=== PATIENT | male | born 1975 | race Two or more races ===

== ENCOUNTER 2018-04-30 17:39 | Inpatient (IN) | payer BC ==
[2018-04-30 18:47] VITALS: BMI 22.5
--- NOTE | 2018-04-30 21:00 | HP ---
CIWA Score Nausea/Vomitin Muscle Tremors: 1-None Visible, but Douglas Anxiety: 2 Agitation: 2 Paroxysmal Sweats: 1-Minimal Palms Moist Orientation: 0-Oriented Tacttile Disturbances: 2-Mild Itch/Numbness/Burn Auditory Disturbances: 1-Very Mild Visual Disturbances: 0-None Headache: 2-Mild CIWA-Ar Total Score: 14 - Admission Criteria OASAS Guidelines: Admission for Medically Managed Detox: Requires at least one of the followin. CIWA greater than 12 2. Seizures within the past 24 hours 3. Delirium tremens within the past 24 hours 4. Hallucinations within the past 24 hours 5. Acute intervention needed for co occurring medical disorder 6. Acute intervention needed for co occurring psychiatric disorder 7. Severe withdrawal that cannot be handled at a lower level of care (continued vomiting, continued diarrhea, abnormal vital signs) requiring intravenous medication and/or fluids 8. Patient presents the following: CIWA greater than 12 Admission Criteria Met: Admission criteria met Admission ROS [facility] Chief Complaint: "I want to detox from alcohol" Allergies/Adverse Reactions: Allergies Allergy/AdvReac Type Severity Reaction Status Date / Time Fish Containing Products Allergy Severe Hives Verified 01/03/12 15:32 shellfish derived Allergy Unknown SEAFOOD Verified 01/04/12 09:46 ALLERGY SEAFOOD Allergy Unknown SEAFOOD Uncoded 01/04/12 09:31 History of Present Illness: 43 yo male with hx of nicotine, alcohol, cocaine (IV), heroin (IV) dependence is here seeking alcohol detox. Patient is link to [facility] at [facility] on 60 mg, last medicated today. PHMX: Hep C, HTN , depression. Denies suicidal / homicidal ideation. Denies hx of seizures. Reports hx of overdose x 2, last episode 2013. Last detox [facility] 2011. Denies any legal troubles at this time. Exam Limitations: No Limitations - Ebola screening Have you traveled outside of the country in the last 21 days: No (N) Have you had contact with anyone from an Ebola affected area: No Have you been sick,other than usual withdrawal symptoms: No Do you have a fever: No - Review of Systems Constitutional: Changes in sleep, Weakness, Unintentional Wgt. Loss (30 lbs in past six months), Other Respiratory: reports: No Symptoms reported Cardiac: reports: No Symptoms Reported GI: reports: Nausea, Poor Appetite, Poor Fluid Intake : reports: No Symptoms Reported Musculoskeletal: reports: Other (chronic left knee pain) Integumentary: reports: No Symptoms Reported Neuro: reports: Headache, Weakness Endocrine: reports: Increased Thirst Hematology: reports: Anemia Psychiatric: reports: Orientated x3, Anxious Other Systems: Reviewed and Negative Patient History - Patient Medical History Hx Anemia: Yes Hx Asthma: No Hx Chronic Obstructive Pulmonary Disease (COPD): No Hx Cancer: No Hx Cardiac Disorders: No Hx Congestive Heart Failure: No Hx Hypertension: Yes (hctz and losartan ) Hx Hypercholesterolemia: No Hx Pacemaker: No HX Cerebrovascular Accident: No Hx Seizures: No Hx Dementia: No Hx Diabetes: No Hx Gastrointestinal Disorders: No Hx Liver Disease: No Hx Genitourinary Disorders: No Hx Sexually Transmitted Disorders: No Hx Renal Disease (ESRD): No Hx Thyroid Disease: No Hx Human Immunodeficiency Virus (HIV): No (Last tested Feb 2018 Neg results ) Hx Hepatitis C: Yes Hx Depression: No Hx Suicide Attempt: No Hx Bipolar Disorder: No Hx Schizophrenia: No - Patient Surgical History Past Surgical History: Yes Hx Neurologic Surgery: No Hx Cataract Extraction: No Hx Cardiac Surgery: No Hx Lung Surgery: No Hx Breast Surgery: No Hx Breast Biopsy: No Hx Abdominal Surgery: No Hx Appendectomy: No Hx Cholecystectomy: No Hx Genitourinary Surgery: No Hx Section: No Hx Orthopedic Surgery: Yes (leftg knee sx 2007) Anesthesia Reaction: No - PPD History Previous Implant?: No Documented Results: Negative w/o proof Date: 01/06/12 PPD to be Administered?: Yes - Smoking Cessation Smoking history: Current every day smoker Have you smoked in the past 12 months: No Aproximately how many cigarettes per day: 2 Hx Chewing Tobacco Use: No Initiated information on smoking cessation: Yes 'Breaking Loose' booklet given: 04/30/18 - Substance & Tx. History Hx Alcohol Use: Yes Hx Substance Use: Yes Substance Use Type: Alcohol, Cocaine, Heroin, Opiates Hx Substance Use Treatment: Yes ([facility] 2011) - Substances Abused Alcohol Route: Oral Frequency: Daily Amount used: 1 pint Age of first use: 19 Date of Last Use: 04/30/18 Cocaine Route: Injection Frequency: Daily Amount used: 10 bags Age of first use: 19 Date of Last Use: 04/30/18 Heroin Route: Injection Frequency: Daily Amount used: 10 bags Age of first use: 21 Date of Last Use: 04/30/18 Family Disease History - Family Disease History Family Disease History: Diabetes: Grandparent () Admission Physical Exam [facility] - Vital Signs Vital Signs: Vital Signs - 24 hr 04/30/18 18:46 Temperature 98.7 F Pulse Rate 75 Respiratory 18 Rate Blood Pressure 150/98 - Physical General Appearance: Yes: Mild Distress, Thin, Sweating, Anxious HEENTM: Yes: EOMI, Hearing grossly Normal, Normal ENT Inspection, Normocephalic , Normal Voice, HILLARY, Pharynx Normal, Tm's normal, Other (dry mucous memebranes) Respiratory: Yes: Chest Non-Tender, Lungs Clear, Normal Breath Sounds, No Respiratory Distress, No Accessory Muscle Use Neck: Yes: Within Normal Limits Breast: Yes: Breast Exam Deferred Cardiology: Yes: Regular Rhythm, Regular Rate Abdominal: Yes: Normal Bowel Sounds, Non Tender, Flat, Soft Genitourinary: Yes: Within Normal Limits Back: Yes: Normal Inspection Musculoskeletal: Yes: full range of Motion, Gait Steady, Pelvis Stable, Other ( knee pain) Extremities: Yes: Within Normal Limits Neurological: Yes: buying agent II-XII NML intact, Fully Oriented, Alert, Motor Strength 5/5, Depressed Affect Integumentary: Yes: Normal Color, Dry, Warm, Track Blake (bilateral anitcubital fossa, no infection present) Lymphatic: Yes: Within Normal Limits - Diagnostic (1) Alcohol dependence with withdrawal Current Visit: Yes Status: Acute Qualifiers: Complication of substance-induced condition: uncomplicated Qualified Code(s ): F10.230 - Alcohol dependence with withdrawal, uncomplicated (2) Opioid dependence on agonist therapy Current Visit: Yes Status: Chronic Comment: methadone 60 mg qd, dose pending verification (3) IVDU (intravenous drug user) Current Visit: Yes Status: Acute (4) Hypertension Current Visit: Yes Status: Chronic Qualifiers: Hypertension type: essential hypertension Qualified Code(s): I10 - Essential (primary) hypertension (5) Hepatitis C Current Visit: Yes Status: Chronic Qualifiers: Viral hepatitis chronicity: chronic Hepatic coma status: without hepatic coma Qualified Code(s): B18.2 - Chronic viral hepatitis C (6) Cocaine dependence Current Visit: Yes Status: Active Cleared for Admission [facility] - Detox or Rehab [facility] Level of Care: Medically Managed Detox Regimen/Protocol: Valium [facility] Breath Alcohol Content Breath Alcohol Content: 0 Urine Drug Screen - Results Drug Screen Negative: No Urine Drug Screen Results: THC-Marijuana, MERVIN-Cocaine, OPI-Opiates, MTD- Methadone
[2018-04-30] MEDS ORDERED: MAGNESIUM HYDROX 2400MG/30ML ORAL SUSPENSION 30 ML CUP PO PRN (21:09)
[2018-04-30] MEDS ORDERED: hydrOXYzine PAMOATE 50 MG CAPSULE (FP) PO PRN (21:09)
[2018-04-30] MEDS ORDERED: MAG HYDROX/AL HYDROX/SIMETH 30 ML UNIT-DOSE CUP PO PRN (21:09)
[2018-04-30] MEDS ORDERED: LOPERAMIDE HCL 2 MG CAPSULE PO PRN (21:09)
[2018-04-30] MEDS ORDERED: P-EPHED 60MG/TRIPROLIDI 2.5MG TABLET PO PRN (21:09)
[2018-04-30] MEDS ORDERED: guaiFENesin/D-METHORPHAN HB 10 ML UNIT-DOSE CUPS PO PRN (21:09)
[2018-04-30] MEDS ORDERED: MENTHOL/PHENOL 1 EACH UD MM PRN (21:09)
[2018-04-30] MEDS ORDERED: IBUPROFEN 400 MG TABLET (FP) PO PRN (21:09)
[2018-04-30] MEDS ORDERED: ACETAMINOPHEN 325 MG TABLET (FP) PO PRN (21:09)
[2018-04-30] MEDS ORDERED: diazePAM 5 MG TABLET PO PRN (21:09)
[2018-04-30] MEDS ORDERED: NICOTINE POLACRILEX 2 MG GUM BC PRN (21:09)
[2018-04-30] MEDS ORDERED: MAGNESIUM CITRATE 300 ML BOTTLE PO PRN (21:09)
[2018-04-30] MEDS ORDERED: MELATONIN 5 MG TABLETS PO PRN (22:00)
[2018-04-30] MEDS ORDERED: diazePAM 5 MG TABLET PO ONE (22:00)
[2018-04-30] MEDS: THIAMINE HCL 100 MG TABLET (FP) PO SCH (23:37)
[2018-04-30] MEDS: diazePAM 5 MG TABLET PO SCH (23:39)
[2018-05-01] MEDS: diazePAM 5 MG TABLET PO SCH ×3 (06:28→22:21)
[2018-05-01] MEDS ORDERED: METHADONE HCL 10 MG TABLET PO ONE (09:22)
[2018-05-01] MEDS ORDERED: METHADONE 40 MG, METHADONE 20 MG PO ONE (09:50)
[2018-05-01 10:00] LABS: HEMATOCRIT 34.6 % (35.4-49); HEMOGLOBIN 12.1 GM/dL (11.7-16.9); MCH 32.2 pg (25.7-33.7); MCHC 34.9 g/dl (32.0-35.9); MEAN CELL VOLUME 92.3 fl (80-96); MEAN PLT VOLUME 8.6 fl (7.5-11.1); PLATELET COUNT 112 K/MM3 (134-434); RBC 3.75 M/mm3 (4.00-5.60); RDW 14.1 % (11.9-15.9); WHITE BLOOD COUNT 4.2 K/mm3 (4.0-10.0)
--- NOTE | 2018-05-01 10:49 | PN ---
S CIWA - CIWA Score Nausea/Vomitin-No Nausea/No Vomiting Muscle Tremors: 3 Anxiety: 3 Agitation: 3 Paroxysmal Sweats: 3 Orientation: 0-Oriented Tacttile Disturbances: 0-None Auditory Disturbances: 0-None Visual Disturbances: 0-None Headache: 0-None Present CIWA-Ar Total Score: 12 S Progress Note (SOAP) Subjective: diarrhea sweats anxiety interrupted sleep Objective: 05/01/18 10:48 Vital Signs Temperature 98.2 F 05/01/18 09:34 Pulse Rate 77 05/01/18 09:34 Respiratory Rate 18 05/01/18 09:34 Blood Pressure 132/73 05/01/18 09:34 O2 Sat by Pulse Oximetry (%) Laboratory Tests 05/01/18 07:00 WBC 4.2 RBC 3.75 L Hgb 12.1 Hct 34.6 L MCV 92.3 MCH 32.2 MCHC 34.9 RDW 14.1 Plt Count 112 L MPV 8.6 rest of labs pending aaox3 ambulating no acute distress Assessment: 05/01/18 10:49 withdrawal sx Plan: continue detox increase fluids immodium prn
[2018-05-01] MEDS: PRENATAL VITAMINS W/ FOLIC ACID TABLET (FP) PO SCH (10:50)
[2018-05-01] MEDS: NICOTINE 14 MG/24 HOURS TOPICAL PATCH TD SCH (10:50)
[2018-05-01] MEDS ORDERED: METHADONE HCL 40 MG DISPERSABLE TABLET ONE (10:51)
[2018-05-01] MEDS ORDERED: METHADONE HCL 10 MG TABLET ONE (10:52)
[2018-05-01 11:13] LABS: ALBUMIN 3.2 g/dl (3.4-5.0); ALK PHOS 99 U/L (45-117); ANION GAP 9 MMOL/L (8-16); BILIRUBIN,TOTAL 0.6 mg/dL (0.2-1); BLOOD UREA NITROGEN 13 mg/dL (7-18); CALCIUM 8.4 mg/dL (8.5-10.1); CHLORIDE 101 mmol/L (98-107); CO2 25 mmol/L (21-32); CREATININE 0.8 mg/dL (0.55-1.3); GLUCOSE,RANDOM 178 mg/dL (74-106); POTASSIUM 3.5 mmol/L (3.5-5.1); SGOT/AST 99 U/L (15-37); SGPT/ALT 140 U/L (13-61); SODIUM 135 mmol/L (136-145); TOT PROT 7.5 g/dl (6.4-8.2)
--- NOTE | 2018-05-01 11:42 | EKG ---
Test Reason : Blood Pressure : / mmHG Vent. Rate : 057 BPM Atrial Rate : 057 BPM P-R Int : 128 ms QRS Dur : 090 ms QT Int : 426 ms P-R-T Axes : 069 080 054 degrees QTc Int : 414 ms SINUS BRADYCARDIA NONSPECIFIC T WAVE ABNORMALITY ABNORMAL ECG NO PREVIOUS ECGS AVAILABLE Confirmed by ISREAL CHILDERS, MIGUELANGEL ([id number]) on 05/01/2018 11:41:39 AM Referred By: Confirmed By:MIGUELANGEL BACH MD
[2018-05-01] MEDS: THIAMINE HCL 100 MG TABLET (FP) PO SCH (22:20)
[2018-05-02] MEDS ORDERED: METHADONE HCL 40 MG DISPERSABLE TABLET ONE (04:58)
[2018-05-02] MEDS ORDERED: METHADONE HCL 10 MG TABLET ONE (04:59)
[2018-05-02] MEDS: METHADONE 40 MG, METHADONE 20 MG PO SCH (05:53)
[2018-05-02] MEDS ORDERED: METHADONE HCL 40 MG DISPERSABLE TABLET PO SCH (06:00)
[2018-05-02] MEDS: diazePAM 5 MG TABLET PO SCH ×2 (10:12→22:07)
[2018-05-02] MEDS: PRENATAL VITAMINS W/ FOLIC ACID TABLET (FP) PO SCH (10:12)
[2018-05-02] MEDS: NICOTINE 14 MG/24 HOURS TOPICAL PATCH TD SCH (10:13)
--- NOTE | 2018-05-02 16:03 | PN ---
[facility] CIWA - CIWA Score Nausea/Vomitin-No Nausea/No Vomiting Muscle Tremors: 2 Anxiety: 3 Agitation: 0-Normal Activity Paroxysmal Sweats: 3 Orientation: 0-Oriented Tacttile Disturbances: 2-Mild Itch/Numbness/Burn Auditory Disturbances: 0-None Visual Disturbances: 3-Moderate Sensitivity Headache: 0-None Present CIWA-Ar Total Score: 13 S Progress Note (SOAP) Subjective: Diarrhea, Stomach Cramping, Chills, Sensitivity To Light. Objective: PATIENT A & O X 3, OBSERVED AMBULATING ON UNIT. IN NO ACUTE DISTRESS. 05/02/18 15:58 Vital Signs Temperature 98.1 F 05/02/18 13:56 Pulse Rate 82 05/02/18 13:56 Respiratory Rate 18 05/02/18 13:56 Blood Pressure 127/69 05/02/18 13:56 O2 Sat by Pulse Oximetry (%) Laboratory Tests 05/01/18 05/01/18 05/01/18 07:00 07:00 07:00 WBC 4.2 RBC 3.75 L Hgb 12.1 Hct 34.6 L MCV 92.3 MCH 32.2 MCHC 34.9 RDW 14.1 Plt Count 112 L MPV 8.6 Sodium 135 L Potassium 3.5 Chloride 101 Carbon Dioxide 25 Anion Gap 9 BUN 13 Creatinine 0.8 Creat Clearance w eGFR > 60 Random Glucose 178 H Calcium 8.4 L Total Bilirubin 0.6 AST 99 H ALT 140 H Alkaline Phosphatase 99 Total Protein 7.5 Albumin 3.2 L RPR Titer Nonreactive HIV 1&2 Antibody Screen HIV P24 Antigen 05/01/18 07:00 WBC RBC Hgb Hct MCV MCH MCHC RDW Plt Count MPV Sodium Potassium Chloride Carbon Dioxide Anion Gap BUN Creatinine Creat Clearance w eGFR Random Glucose Calcium Total Bilirubin AST ALT Alkaline Phosphatase Total Protein Albumin RPR Titer HIV 1&2 Antibody Screen Negative HIV P24 Antigen Negative LABS NOTED. Assessment: 05/02/18 15:59 WITHDRAWAL SYMPTOMS. ELEVATED LIVER ENZYMES. ANEMIA. THROMBOCYTOPENIA. 05/02/18 16:01 Plan: CONTINUE DETOX. BGM ACBK FOR ELEVATED ADMISSION RANDOM GLUCOSE LEVEL. REPEAT AST, ALT TOMORROW FOR ELEVATED ADMISSION LEVELS.
[2018-05-02] MEDS: THIAMINE HCL 100 MG TABLET (FP) PO SCH (22:07)
[2018-05-03] MEDS ORDERED: METHADONE HCL 10 MG TABLET ONE (05:07)
[2018-05-03] MEDS ORDERED: METHADONE HCL 40 MG DISPERSABLE TABLET ONE (05:07)
[2018-05-03] MEDS: METHADONE 40 MG, METHADONE 20 MG PO SCH (05:54)
[2018-05-03] MEDS: NICOTINE 14 MG/24 HOURS TOPICAL PATCH TD SCH (10:13)
[2018-05-03] MEDS: PRENATAL VITAMINS W/ FOLIC ACID TABLET (FP) PO SCH (10:13)
[2018-05-03] MEDS: diazePAM 5 MG TABLET PO SCH ×2 (10:13→22:06)
[2018-05-03 10:54] LABS: SGOT/AST 121 U/L (15-37); SGPT/ALT 145 U/L (13-61)
--- NOTE | 2018-05-03 13:15 | PN ---
[facility] Progress Note (SOAP) Subjective: anxiety feeling so much better Objective: 05/03/18 13:14 Vital Signs Temperature 98.2 F 05/03/18 09:17 Pulse Rate 84 05/03/18 09:17 Respiratory Rate 18 05/03/18 09:17 Blood Pressure 114/73 05/03/18 09:17 O2 Sat by Pulse Oximetry (%) aaox3 ambulating no acute distress pt states he is not a diabetic. will d/c BGM order Assessment: 05/03/18 13:15 mild withdrawal sx Plan: continue detox increase fluids d/c in am
[2018-05-03] MEDS: THIAMINE HCL 100 MG TABLET (FP) PO SCH (22:06)
[2018-05-04] MEDS ORDERED: METHADONE HCL 10 MG TABLET ONE (05:47)
[2018-05-04] MEDS ORDERED: METHADONE HCL 40 MG DISPERSABLE TABLET ONE (05:47)
[2018-05-04] MEDS: METHADONE 40 MG, METHADONE 20 MG PO SCH (05:48)
[2018-05-04] MEDS ORDERED: diazePAM 5 MG TABLET PO SCH (10:00)
[2018-05-04 10:25] VITALS: BP 121/67; PULSE 72; TEMP 97.2
[2018-05-04] MEDS: PRENATAL VITAMINS W/ FOLIC ACID TABLET (FP) PO SCH (10:42)
[2018-05-04] MEDS: NICOTINE 14 MG/24 HOURS TOPICAL PATCH TD SCH (10:44)
--- NOTE | 2018-05-04 13:22 | PN ---
S Progress Note (SOAP) Subjective: No new complaints Objective: 05/04/18 13:18 A & O x 3 Ambulating steadily on unit Vital Signs Temperature 97.2 F L 05/04/18 10:25 Pulse Rate 72 05/04/18 10:25 Respiratory Rate 16 05/04/18 10:25 Blood Pressure 121/67 05/04/18 10:25 O2 Sat by Pulse Oximetry (%) Assessment: 05/04/18 13:19 detox completed Plan: for discharge
--- NOTE | 2018-05-04 13:26 | DS ---
[facility] Detox Discharge Summary Admission Date: 04/30/18 Discharge Date: 05/04/18 - History Additional Comments: Pt completed detox Will continue aftercare by attending Rehab at [facility] Not on any home med Pertinent Past History: Hep C - Physical Exam Results Vital Signs: Vital Signs Temperature 97.2 F L 05/04/18 10:25 Pulse Rate 72 05/04/18 10:25 Respiratory Rate 16 05/04/18 10:25 Blood Pressure 121/67 05/04/18 10:25 O2 Sat by Pulse Oximetry (%) Pertinent Admission Physical Exam Findings: withdrawal sx - Treatment Hospital Course: Detox Protocol Followed, Detoxed Safely, Responded well, Discharged Condition Good, Rehab Referral Accepted Patient has Accepted a Rehab Referral to: [facility] - Medication Discharge Medications: Ambulatory Orders clonazePAM [Klonopin -] 2 mg PO BID 04/30/18 - AMA Did Patient Leave Against Medical Advice: No
== END 2018-05-04 11:18 | disposition home or self-care (01) | DRG 773 ==
LOC: YASAS 17:39 → Y6N 21:37
PROVIDERS: ADMIT Surgery; ATTEND Surgery
PROC: HZ2ZZZZ Detoxification Services for Substance Abuse Treatment (ICD-10-PCS; principal; 2018-04-30)
DX: F10.230 Alcohol dependence with withdrawal, uncomplicated (principal); F14.20 Cocaine dependence, uncomplicated; F11.20 Opioid dependence, uncomplicated; I10 Essential (primary) hypertension; B18.2 Chronic viral hepatitis C; Z91.013 Allergy to seafood
CPT/HCPCS: 36415; 80053; 82947; 82962; 84450; 84460; 85027; 86593; 87389; 93005; 93010

== ENCOUNTER 2018-07-02 19:23 | Inpatient (IN) | payer OTHER ==
[2018-07-02 20:50] VITALS: BMI 21.9
--- NOTE | 2018-07-02 21:37 | HP ---
CIWA Score Nausea/Vomitin-Mild Nausea/No Vomiting Muscle Tremors: 4-Moderate,w/Arms Extend Anxiety: 1-Mildly Anxious Agitation: 1-Slight > Activity Paroxysmal Sweats: 3 (Increased facial moisture) Orientation: 0-Oriented Tacttile Disturbances: 0-None Auditory Disturbances: 0-None Visual Disturbances: 0-None Headache: 2-Mild CIWA-Ar Total Score: 12 - Admission Criteria OASAS Guidelines: Admission for Medically Managed Detox: Requires at least one of the followin. CIWA greater than 12 2. Seizures within the past 24 hours 3. Delirium tremens within the past 24 hours 4. Hallucinations within the past 24 hours 5. Acute intervention needed for co occurring medical disorder 6. Acute intervention needed for co occurring psychiatric disorder 7. Severe withdrawal that cannot be handled at a lower level of care (continued vomiting, continued diarrhea, abnormal vital signs) requiring intravenous medication and/or fluids 8. Patient presents the following: CIWA greater than 12 Admission Criteria Met: Admission criteria met Admission ROS [facility] Chief Complaint: States having alcohol withdrawal. Allergies/Adverse Reactions: Allergies Allergy/AdvReac Type Severity Reaction Status Date / Time Fish Containing Products Allergy Severe Hives Verified 07/02/18 20:34 shellfish derived Allergy Unknown SEAFOOD Verified 07/02/18 20:34 ALLERGY SEAFOOD Allergy Unknown SEAFOOD Uncoded 07/02/18 20:34 History of Present Illness: States here for detox from alcohol and prescribed benzos' Heroin use began at age 21. Relapsing w/ heroin IV. Has shared needles in recent past. On [facility] in [place], [place] x 2-3 years. States current Methadone dose is 70 mg. Needs dose verification. Benzo use began at age 25. Didn't start using a lot until 2 years ago. Is being prescribed. Alcohol use began at age 18. Began drinking a lot at age 39. Nicotine use began at age 18. Longest length of sobriety 2-3 years ago. No hx seizures. Hx overdose - last 2013. Has a Narcan Kit at home. PHMX: HTN , Hep C - not treated; nose bleeds; gout 04/30/18 EKG = Sinus bradycardia w/ non-specific T-wave abnormality. MHHx: Depression. Denies thoughts of harming self or others Patient Name: Refugio Douglas Date: 1975 Address: [id number] [address] Sex: Male Rx Written Rx Dispensed Drug Quantity Days Supply Prescriber Name 06/24/2018 07/01/2018 hydrocodone-acetaminophen 10-325 mg tablet 14 7 Fish, Art Boothe DO 06/24/2018 06/24/2018 clonazepam 2 mg tablet 60 30 Fish, Art Boothe DO 06/03/2018 06/17/2018 hydrocodone-acetaminophen 10-325 mg tablet 30 15 Fish, Art Boothe DO 06/01/2018 06/03/2018 alprazolam 1 mg tablet 10 5 Fish, Art Boothe DO 06/03/2018 06/03/2018 alprazolam 1 mg tablet 10 5 Fish, Art Boothe DO 05/24/2018 05/27/2018 clonazepam 2 mg tablet 50 25 Fish, Art Boothe DO 04/22/2018 05/23/2018 hydrocodone-acetaminophen 10-325 mg tablet 60 30 Fish, Art oBothe DO 05/23/2018 05/23/2018 clonazepam 2 mg tablet 10 5 Fish, Art Boothe DO 04/22/2018 04/22/2018 clonazepam 2 mg tablet 60 30 Fish, Art Boothe DO 03/27/2018 04/17/2018 clonazepam 2 mg tablet 60 30 Fish, Art Boothe DO 03/17/2018 03/20/2018 alprazolam 1 mg tablet 20 10 Fish, Art Boothe DO 03/11/2018 03/11/2018 hydrocodone-acetaminophen 10-325 mg tablet 90 30 Fish, Art Boothe DO 03/05/2018 03/06/2018 alprazolam 1 mg tablet 30 15 Fish, Art Boothe DO Patient Name: Refugio Douglas Date: 1975 Address: [id number] [place] [address] Sex: Male Rx Written Rx Dispensed Drug Quantity Days Supply Prescriber Name 02/26/2018 02/26/2018 clonazepam 1 mg tablet 60 30 Fish, Art Boothe DO 02/23/2018 02/23/2018 alprazolam 1 mg tablet 30 10 Fish, Art Boothe DO 01/28/2018 02/13/2018 hydrocodone-acetaminophen 10-325 mg tablet 90 30 Fish, Art Boothe DO 02/04/2018 02/13/2018 alprazolam 1 mg tablet 30 10 Fish, Art Boothe DO 02/04/2018 02/04/2018 alprazolam 2 mg tablet 16 8 Fish, Art Boothe DO 01/28/2018 01/28/2018 clonazepam 2 mg tablet 60 30 Fish, Art Boothe DO 01/28/2018 01/28/2018 alprazolam 1 mg tablet 45 15 Fish, Art Boothe DO 01/10/2018 01/15/2018 hydrocodone-acetaminophen 10-325 mg tablet 90 30 Fish, Art Boothe DO 12/28/2017 01/09/2018 hydrocodone-acetaminophen 10-325 mg tablet 30 15 Fish, Art Boothe DO 12/28/2017 01/02/2018 alprazolam 1 mg tablet 90 30 Fish, Art Boothe DO 12/28/2017 01/02/2018 clonazepam 2 mg tablet 60 30 Fish, Art Boothe DO Patient Name: Refugio Douglas Date: 1975 Address: [address] [place] [address] Sex: Male Rx Written Rx Dispensed Drug Quantity Days Supply Prescriber Name 12/29/2017 12/29/2017 hydrocodone-acetaminophen 10-325 mg tablet 30 15 Fish, Art Boothe DO 11/21/2017 12/05/2017 hydrocodone-acetaminophen 10-325 mg tablet 50 12 Fish, Art Boothe DO 12/05/2017 12/05/2017 clonazepam 2 mg tablet 60 30 Fish, Art Boothe DO 12/05/2017 12/05/2017 alprazolam 2 mg tablet 60 30 Fish, Art Boothe DO 12/05/2017 12/05/2017 hydrocodone-acetaminophen 10-325 mg tablet 28 14 Fish, Art Boothe DO 11/05/2017 11/05/2017 clonazepam 2 mg tablet 30 30 Fish, Art Boothe DO 11/05/2017 11/05/2017 alprazolam 2 mg tablet 60 30 Fish, Art Boothe DO 11/05/2017 11/05/2017 hydrocodone-acetaminophen 10-325 mg tablet 60 30 Fish, Art Boothe DO Exam Limitations: No Limitations - Ebola screening Have you traveled outside of the country in the last 21 days: No (N) Have you had contact with anyone from an Ebola affected area: No Have you been sick,other than usual withdrawal symptoms: No Do you have a fever: No - Review of Systems Constitutional: Chills, Diaphoresis, Loss of Appetite, Changes in sleep ( Difficulty falling and staying asleep -) EENT: reports: Blurred Vision, Nose Congestion, Other (Hx nose bleeds) Respiratory: reports: No Symptoms reported Cardiac: reports: No Symptoms Reported GI: reports: Diarrhea (soft, light brown), Abdominal cramping : reports: No Symptoms Reported Musculoskeletal: reports: Muscle Pain, Other ((L) foot pain r/t gout -) Integumentary: reports: Bruising (On both legs), Lesions (Scratches and scrapes on (R) stock area.) Neuro: reports: Headache (MIld - top of head), Numbness (in legs), Tremors Endocrine: reports: Increased Thirst Hematology: reports: Anemia (low iron) Psychiatric: reports: Judgement Intact, Orientated x3, Agitated, Anxious, Depressed (Denies thoughts of harming self or others) Patient History - Patient Medical History Hx Anemia: Yes Hx Asthma: No Hx Chronic Obstructive Pulmonary Disease (COPD): No Hx Cancer: No Hx Cardiac Disorders: No Hx Congestive Heart Failure: No Hx Hypertension: Yes (hctz and losartan ) Hx Hypercholesterolemia: No Hx Pacemaker: No HX Cerebrovascular Accident: No Hx Seizures: No Hx Dementia: No Hx Diabetes: No Hx Gastrointestinal Disorders: No Hx Liver Disease: No Hx Genitourinary Disorders: No Hx Sexually Transmitted Disorders: No Hx Renal Disease (ESRD): No Hx Thyroid Disease: No Hx Human Immunodeficiency Virus (HIV): No (Last tested Feb 2018 Neg results ) Hx Hepatitis C: Yes Hx Depression: Yes Hx Suicide Attempt: No Hx Bipolar Disorder: No Hx Schizophrenia: No - Patient Surgical History Past Surgical History: Yes Hx Neurologic Surgery: No Hx Cataract Extraction: No Hx Cardiac Surgery: No Hx Lung Surgery: No Hx Breast Surgery: No Hx Breast Biopsy: No Hx Abdominal Surgery: No Hx Appendectomy: No Hx Cholecystectomy: No Hx Genitourinary Surgery: No Hx Section: No Hx Orthopedic Surgery: Yes (leftg knee sx 2007) Anesthesia Reaction: No - PPD History Previous Implant?: Yes Documented Results: Negative w/proof Implanted On Prior [facility] Admission?: Yes Date: 05/02/18 PPD to be Administered?: No - Smoking Cessation Smoking history: Current every day smoker Have you smoked in the past 12 months: Yes Aproximately how many cigarettes per day: 10 Hx Chewing Tobacco Use: No Initiated information on smoking cessation: Yes 'Breaking Loose' booklet given: 07/02/18 - Substance & Tx. History Hx Alcohol Use: Yes Hx Substance Use: Yes Substance Use Type: Alcohol, Cocaine, Heroin, Prescribed (Xanax, klonopin) Hx Substance Use Treatment: Yes (rehab, detox) - Substances abused Cocaine Substance route: Injection Frequency: Daily Amount used: 3 to 6 bags Age of first use: 19 Date of last use: 07/02/18 Heroin Substance route: Injection Frequency: Daily Amount used: 3 to 6 bags Age of first use: 21 Date of last use: 07/02/18 Benzodiazepine (Klonopin) Other (specify): Ativan,Xanax, Substance route: Oral Frequency: 3-6 times per week Amount used: 3 pills of 2 mg. Age of first use: 25 Date of last use: 07/02/18 Alcohol Substance route: Oral Frequency: 3-6 times per week Amount used: 1 pint of Chalino/ vodka Age of first use: 19 Date of last use: 07/01/18 Family Disease History - Family Disease History Family Disease History: Diabetes: Grandparent () Admission Physical Exam S - Vital Signs Vital Signs: Vital Signs - 24 hr 07/02/18 20:37 Temperature 97.7 F Pulse Rate 64 Respiratory 18 Rate Blood Pressure 128/85 - Physical General Appearance: Yes: Mild Distress, Tremorous, Sweating HEENTM: Yes: EOMI (Jerking movements of eyes on lateral gaze), Normocephalic, Normal Voice, HILLARY, Pharynx Normal Respiratory: Yes: Lungs Clear, Normal Breath Sounds, No Respiratory Distress Neck: Yes: No masses,lesions,Nodules, Supple Breast: Yes: Breast Exam Deferred Cardiology: Yes: Regular Rate, Bradycardia Abdominal: Yes: Non Tender, Flat, Soft, Increased Bowel Sounds Genitourinary: Yes: Within Normal Limits Back: Yes: Normal Inspection Musculoskeletal: Yes: full range of Motion, Gait Steady (w/ a slight limp favoring (L) leg) Extremities: Yes: Normal Capillary Refill, Tremors, Pedal Edema (Bilateral toes to above ankle (L) . (R)), Erythema (Increased erythema of dorsum both feet (L) > (R)), Other (Tenderness dorsum of (L) foot) Neurological: Yes: nut grinder II-XII NML intact (Jerking movements of eyes on lateral gaze), Fully Oriented, Alert, Motor Strength 5/5 Integumentary: Yes: Normal Color, Dry (except for increased facial mositure), Warm, Track Blake (Old and new track blake antecubital area) Lymphatic: Yes: Within Normal Limits - Diagnostic (1) Cocaine dependence Current Visit: Yes Status: Chronic (2) Alcohol dependence with withdrawal Current Visit: Yes Status: Acute Qualifiers: Complication of substance-induced condition: uncomplicated Qualified Code(s ): F10.230 - Alcohol dependence with withdrawal, uncomplicated (3) IVDU (intravenous drug user) Current Visit: Yes Status: Chronic (4) Hypertension Current Visit: Yes Status: Chronic Qualifiers: Hypertension type: essential hypertension Qualified Code(s): I10 - Essential (primary) hypertension (5) Opioid dependence on agonist therapy Current Visit: Yes Status: Chronic Comment: Methadone 70 mg daily pending verification (6) Gout Current Visit: Yes Status: Chronic Qualifiers: Gout site: foot Gout etiology: unspecified cause Chronicity: unspecified Laterality: unspecified laterality Qualified Code(s): M10.9 - Gout, unspecified (7) Anxiolytic dependence with current use Current Visit: Yes Status: Chronic (8) Nicotine dependence, uncomplicated Current Visit: Yes Status: Chronic Qualifiers: Nicotine product type: cigarettes Qualified Code(s): F17.210 - Nicotine dependence, cigarettes, uncomplicated Cleared for Admission [facility] - Detox or Rehab [facility] Level of Care: Medically Managed Detox Regimen/Protocol: Librium Inpatient Rehab Admission - Rehab Decision to Admit Inpatient rehab admission?: No
[2018-07-02] MEDS ORDERED: MAGNESIUM CITRATE 300 ML BOTTLE PO PRN (22:05)
[2018-07-02] MEDS ORDERED: METHOCARBAMOL 500 MG TABLET PO PRN (22:05)
[2018-07-02] MEDS ORDERED: MENTHOL/PHENOL 1 EACH UD MM PRN (22:05)
[2018-07-02] MEDS ORDERED: ACETAMINOPHEN 325 MG TABLET (FP) PO PRN ×2 (22:05)
[2018-07-02] MEDS ORDERED: MAG HYDROX/AL HYDROX/SIMETH 30 ML UNIT-DOSE CUP PO PRN (22:05)
[2018-07-02] MEDS ORDERED: chlordiazePOXIDE HCL 25 MG CAPSULE PO PRN (22:05)
[2018-07-02] MEDS ORDERED: MAGNESIUM HYDROX 2400MG/30ML ORAL SUSPENSION 30 ML CUP PO PRN (22:05)
[2018-07-02] MEDS ORDERED: NICOTINE POLACRILEX 2 MG GUM BUC PRN (22:05)
[2018-07-02] MEDS ORDERED: guaiFENesin 200 MG/10 ML 10 ML UNIT-DOSE CUPS PO PRN (22:05)
[2018-07-02] MEDS ORDERED: NAPROXEN 500 MG TABLET (FP) PO PRN (22:07)
[2018-07-02] MEDS: chlordiazePOXIDE HCL 25 MG CAPSULE PO SCH (23:52)
[2018-07-03] MEDS: chlordiazePOXIDE HCL 25 MG CAPSULE PO SCH ×4 (05:50→22:39)
[2018-07-03] MEDS ORDERED: METHADONE 40 MG, METHADONE 30 MG PO ONE (08:45)
[2018-07-03 09:59] LABS: HEMATOCRIT 36.8 % (35.4-49); HEMOGLOBIN 12.6 GM/dL (11.7-16.9); MCH 32.3 pg (25.7-33.7); MCHC 34.2 g/dl (32.0-35.9); MEAN CELL VOLUME 94.7 fl (80-96); MEAN PLT VOLUME 8.5 fl (7.5-11.1); PLATELET COUNT 150 K/MM3 (134-434); RBC 3.89 M/mm3 (4.00-5.60); RDW 13.1 % (11.9-15.9); WHITE BLOOD COUNT 4.9 K/mm3 (4.0-10.0)
[2018-07-03] MEDS ORDERED: METHADONE HCL 10 MG TABLET PO ONE (10:00)
[2018-07-03 10:01] LABS: ALBUMIN 3.4 g/dl (3.4-5.0); ALK PHOS 149 U/L (45-117); ANION GAP 4 MMOL/L (8-16); BILIRUBIN,TOTAL 0.4 mg/dL (0.2-1); BLOOD UREA NITROGEN 18 mg/dL (7-18); CALCIUM 8.8 mg/dL (8.5-10.1); CHLORIDE 104 mmol/L (98-107); CO2 31 mmol/L (21-32); CREATININE 0.7 mg/dL (0.55-1.3); GLUCOSE,RANDOM 105 mg/dL (74-106); SGOT/AST 91 U/L (15-37); SGPT/ALT 144 U/L (13-61); SODIUM 139 mmol/L (136-145)
[2018-07-03] MEDS ORDERED: METHADONE HCL 10 MG TABLET ONE (10:14)
[2018-07-03] MEDS: PRENATAL VITAMINS W/ FOLIC ACID TABLET (FP) PO SCH (10:15)
[2018-07-03] MEDS ORDERED: METHADONE HCL 40 MG DISPERSABLE TABLET ONE (10:15)
[2018-07-03] MEDS: NICOTINE 14 MG/24 HOURS TOPICAL PATCH TD SCH (10:16)
[2018-07-03] MEDS: LOSARTAN POTASSIUM 25 MG TABLET PO SCH (11:07)
--- NOTE | 2018-07-03 14:35 | PN ---
[facility] CIWA - CIWA Score Nausea/Vomitin-Mild Nausea/No Vomiting Muscle Tremors: 2 Anxiety: 2 Agitation: 1-Slight > Activity Paroxysmal Sweats: 1-Minimal Palms Moist Orientation: 0-Oriented Tacttile Disturbances: 0-None Auditory Disturbances: 0-None Visual Disturbances: 0-None Headache: 0-None Present CIWA-Ar Total Score: 7 S Progress Note (SOAP) Subjective: had methadone 70 mg today feeling ok today Objective: 07/03/18 14:34 Vital Signs Temperature 96.8 F L 07/03/18 13:52 Pulse Rate 82 07/03/18 13:52 Respiratory Rate 18 07/03/18 13:52 Blood Pressure 135/74 07/03/18 13:52 O2 Sat by Pulse Oximetry (%) Laboratory Last Values WBC 4.9 K/mm3 (4.0-10.0) 07/03/18 07:00 RBC 3.89 M/mm3 (4.00-5.60) L 07/03/18 07:00 Hgb 12.6 GM/dL (11.7-16.9) 07/03/18 07:00 Hct 36.8 % (35.4-49) 07/03/18 07:00 MCV 94.7 fl (80-96) 07/03/18 07:00 MCH 32.3 pg (25.7-33.7) 07/03/18 07:00 MCHC 34.2 g/dl (32.0-35.9) 07/03/18 07:00 RDW 13.1 % (11.9-15.9) 07/03/18 07:00 Plt Count 150 K/MM3 (134-434) D 07/03/18 07:00 MPV 8.5 fl (7.5-11.1) 07/03/18 07:00 Sodium 139 mmol/L (136-145) 07/03/18 07:00 Potassium 4.0 mmol/L (3.5-5.1) 07/03/18 07:00 Chloride 104 mmol/L (98-107) 07/03/18 07:00 Carbon Dioxide 31 mmol/L (21-32) 07/03/18 07:00 Anion Gap 4 MMOL/L (8-16) L 07/03/18 07:00 BUN 18 mg/dL (7-18) 07/03/18 07:00 Creatinine 0.7 mg/dL (0.55-1.3) 07/03/18 07:00 Creat Clearance w eGFR 124.28 (>60) 07/03/18 07:00 Random Glucose 105 mg/dL (74-106) 07/03/18 07:00 Calcium 8.8 mg/dL (8.5-10.1) 07/03/18 07:00 Total Bilirubin 0.4 mg/dL (0.2-1) 07/03/18 07:00 AST 91 U/L (15-37) H 07/03/18 07:00 ALT 144 U/L (13-61) H 07/03/18 07:00 Alkaline Phosphatase 149 U/L (45-117) H 07/03/18 07:00 Total Protein 8.0 g/dl (6.4-8.2) 07/03/18 07:00 Albumin 3.4 g/dl (3.4-5.0) 07/03/18 07:00 RPR Titer Nonreactive (NONREACTIVE) 07/03/18 07:00 lab noted Assessment: 07/03/18 14:35 withdrawal sx Plan: continue detox
[2018-07-03 16:22] LABS: PH,URINE 5.5 (5.0-8.0); URINE APPEARANCE CLEAR; URINE BILIRUBIN NEGATIVE (NEGATIVE); URINE COLOR YELLOW; URINE GLUCOSE (UA) NEGATIVE (NEGATIVE); URINE KETONE NEGATIVE (NEGATIVE); URINE LEUK ESTERASE NEGATIVE (NEGATIVE); URINE NITRITE NEGATIVE (NEGATIVE); URINE PROTEIN NEGATIVE (NEGATIVE)
[2018-07-03] MEDS: THIAMINE HCL 100 MG TABLET (FP) PO SCH (22:39)
[2018-07-03] MEDS: MELATONIN 5 MG TABLETS PO PRN (22:39)
[2018-07-04] MEDS ORDERED: METHADONE HCL 10 MG TABLET ONE (04:22)
[2018-07-04] MEDS ORDERED: METHADONE HCL 40 MG DISPERSABLE TABLET ONE (04:22)
[2018-07-04] MEDS: chlordiazePOXIDE HCL 25 MG CAPSULE PO SCH ×2 (05:22→10:42)
[2018-07-04] MEDS: METHADONE 40 MG, METHADONE 30 MG PO SCH (05:22)
[2018-07-04] MEDS ORDERED: METHADONE HCL 10 MG TABLET PO SCH (06:00)
[2018-07-04] MEDS: PRENATAL VITAMINS W/ FOLIC ACID TABLET (FP) PO SCH (10:42)
[2018-07-04] MEDS: LOSARTAN POTASSIUM 25 MG TABLET PO SCH (10:43)
[2018-07-04] MEDS: NICOTINE 14 MG/24 HOURS TOPICAL PATCH TD SCH (10:44)
--- NOTE | 2018-07-04 12:23 | PN ---
S CIWA - CIWA Score Nausea/Vomitin-Mild Nausea/No Vomiting Muscle Tremors: 1-None Visible, but [place] Anxiety: 1-Mildly Anxious Agitation: 1-Slight > Activity Paroxysmal Sweats: No Perspiration Orientation: 0-Oriented Tacttile Disturbances: 0-None Auditory Disturbances: 0-None Visual Disturbances: 0-None Headache: 0-None Present CIWA-Ar Total Score: 4 [facility] Progress Note (SOAP) Subjective: feeling better today social with peers in day room but trouble sleep through the night Objective: 07/04/18 12:18 Vital Signs Temperature 98.2 F 07/04/18 09:06 Pulse Rate 72 07/04/18 09:06 Respiratory Rate 18 07/04/18 09:06 Blood Pressure 116/76 07/04/18 09:06 O2 Sat by Pulse Oximetry (%) Laboratory Last Values WBC 4.9 K/mm3 (4.0-10.0) 07/03/18 07:00 RBC 3.89 M/mm3 (4.00-5.60) L 07/03/18 07:00 Hgb 12.6 GM/dL (11.7-16.9) 07/03/18 07:00 Hct 36.8 % (35.4-49) 07/03/18 07:00 MCV 94.7 fl (80-96) 07/03/18 07:00 MCH 32.3 pg (25.7-33.7) 07/03/18 07:00 MCHC 34.2 g/dl (32.0-35.9) 07/03/18 07:00 RDW 13.1 % (11.9-15.9) 07/03/18 07:00 Plt Count 150 K/MM3 (134-434) D 07/03/18 07:00 MPV 8.5 fl (7.5-11.1) 07/03/18 07:00 Sodium 139 mmol/L (136-145) 07/03/18 07:00 Potassium 4.0 mmol/L (3.5-5.1) 07/03/18 07:00 Chloride 104 mmol/L (98-107) 07/03/18 07:00 Carbon Dioxide 31 mmol/L (21-32) 07/03/18 07:00 Anion Gap 4 MMOL/L (8-16) L 07/03/18 07:00 BUN 18 mg/dL (7-18) 07/03/18 07:00 Creatinine 0.7 mg/dL (0.55-1.3) 07/03/18 07:00 Creat Clearance w eGFR 124.28 (>60) 07/03/18 07:00 Random Glucose 105 mg/dL (74-106) 07/03/18 07:00 Calcium 8.8 mg/dL (8.5-10.1) 07/03/18 07:00 Total Bilirubin 0.4 mg/dL (0.2-1) 07/03/18 07:00 AST 91 U/L (15-37) H 07/03/18 07:00 ALT 144 U/L (13-61) H 07/03/18 07:00 Alkaline Phosphatase 149 U/L (45-117) H 07/03/18 07:00 Total Protein 8.0 g/dl (6.4-8.2) 07/03/18 07:00 Albumin 3.4 g/dl (3.4-5.0) 07/03/18 07:00 Urine Color Yellow 07/03/18 10:15 Urine Appearance Clear 07/03/18 10:15 Urine pH 5.5 (5.0-8.0) 07/03/18 10:15 Ur Specific [place] 1.021 (1.010-1.035) 07/03/18 10:15 Urine Protein Negative (NEGATIVE) 07/03/18 10:15 Urine Glucose (UA) Negative (NEGATIVE) 07/03/18 10:15 Urine Ketones Negative (NEGATIVE) 07/03/18 10:15 Urine Blood Negative (NEGATIVE) 07/03/18 10:15 Urine Nitrite Negative (NEGATIVE) 07/03/18 10:15 Urine Bilirubin Negative (NEGATIVE) 07/03/18 10:15 Urine Urobilinogen 1.0 mg/dL (0.2-1.0) 07/03/18 10:15 Ur Leukocyte Esterase Negative (NEGATIVE) 07/03/18 10:15 RPR Titer Nonreactive (NONREACTIVE) 07/03/18 07:00 lab noted repeat ast reporting that history of liver enzyme elevation "came down" "sometimes" agrees to ativan araceli regimen for alcohol withdrawal symtpoms 07/04/18 13:23 Assessment: 07/04/18 13:24 withdrawal sx liver enzyme elevation Plan: continue alcohol detox repea ast
[2018-07-04] MEDS ORDERED: LORazepam 1 MG TABLET PO PRN (13:20)
--- NOTE | 2018-07-04 16:39 | EKG ---
Test Reason : Blood Pressure : / mmHG Vent. Rate : 054 BPM Atrial Rate : 054 BPM P-R Int : 116 ms QRS Dur : 092 ms QT Int : 458 ms P-R-T Axes : 079 081 048 degrees QTc Int : 434 ms SINUS BRADYCARDIA T WAVE ABNORMALITY, CONSIDER ANTERIOR ISCHEMIA ABNORMAL ECG WHEN COMPARED WITH ECG OF 30-APR-2018 23:16, T WAVE INVERSION NOW EVIDENT IN ANTERIOR LEADS Confirmed by AMANDA CHILDERS, DIONTE ([id number]) on 07/04/2018 4:39:35 PM Referred By: Confirmed By:DIONTE PATEL MD
[2018-07-04] MEDS: LORazepam 1 MG TABLET PO SCH ×2 (18:19→23:09)
[2018-07-04] MEDS: BISMUTH SUBSALICYLATE 524 MG/30 ML UD PO PRN ×2 (18:19→22:25)
[2018-07-04] MEDS: MELATONIN 5 MG TABLETS PO PRN (22:23)
[2018-07-04] MEDS: THIAMINE HCL 100 MG TABLET (FP) PO SCH (22:23)
[2018-07-04] MEDS ORDERED: chlordiazePOXIDE HCL 10 MG CAPSULE PO PRN (23:00)
[2018-07-04] MEDS ORDERED: chlordiazePOXIDE HCL 10 MG CAPSULE PO SCH (23:00)
[2018-07-05] MEDS ORDERED: LORazepam 0.5 MG TABLET PO PRN (00:01)
[2018-07-05] MEDS ORDERED: METHADONE HCL 10 MG TABLET ONE (04:41)
[2018-07-05] MEDS ORDERED: METHADONE HCL 40 MG DISPERSABLE TABLET ONE (04:41)
[2018-07-05] MEDS: LORazepam 0.5 MG TABLET PO SCH ×2 (05:09→12:50)
[2018-07-05] MEDS: METHADONE 40 MG, METHADONE 30 MG PO SCH (05:10)
[2018-07-05 09:12] VITALS: BP 106/64; PULSE 70; TEMP 96.5
[2018-07-05] MEDS: LOSARTAN POTASSIUM 25 MG TABLET PO SCH (10:09)
[2018-07-05] MEDS: PRENATAL VITAMINS W/ FOLIC ACID TABLET (FP) PO SCH (10:09)
[2018-07-05] MEDS: NICOTINE 14 MG/24 HOURS TOPICAL PATCH TD SCH (10:10)
--- NOTE | 2018-07-05 14:44 | PN ---
[facility] Progress Note (SOAP) Subjective: Patient denies current Withdrawal / Detox symptoms and reports that he feels well overall. Objective: PATIENT A & O X 3, OBSERVED AMBULATING ON UNIT. IN NO ACUTE DISTRESS. 07/05/18 14:39 Vital Signs Temperature 96.5 F L 07/05/18 09:10 Pulse Rate 70 07/05/18 09:10 Respiratory Rate 18 07/05/18 09:10 Blood Pressure 106/64 07/05/18 09:10 O2 Sat by Pulse Oximetry (%) Laboratory Tests 07/03/18 07/03/18 07/03/18 07:00 07:00 07:00 WBC 4.9 RBC 3.89 L Hgb 12.6 Hct 36.8 MCV 94.7 MCH 32.3 MCHC 34.2 RDW 13.1 Plt Count 150 D MPV 8.5 Sodium 139 Potassium 4.0 Chloride 104 Carbon Dioxide 31 Anion Gap 4 L BUN 18 Creatinine 0.7 Creat Clearance w eGFR 124.28 Random Glucose 105 Calcium 8.8 Total Bilirubin 0.4 AST 91 H ALT 144 H Alkaline Phosphatase 149 H Total Protein 8.0 Albumin 3.4 Urine Color Urine Appearance Urine pH Ur Specific [place] Urine Protein Urine Glucose (UA) Urine Ketones Urine Blood Urine Nitrite Urine Bilirubin Urine Urobilinogen Ur Leukocyte Esterase RPR Titer Nonreactive 07/03/18 07/05/18 10:15 07:00 WBC RBC Hgb Hct MCV MCH MCHC RDW Plt Count MPV Sodium Potassium Chloride Carbon Dioxide Anion Gap BUN Creatinine Creat Clearance w eGFR Random Glucose Calcium Total Bilirubin AST 96 H ALT Alkaline Phosphatase Total Protein Albumin Urine Color Yellow Urine Appearance Clear Urine pH 5.5 Ur Specific [place] 1.021 Urine Protein Negative Urine Glucose (UA) Negative Urine Ketones Negative Urine Blood Negative Urine Nitrite Negative Urine Bilirubin Negative Urine Urobilinogen 1.0 Ur Leukocyte Esterase Negative RPR Titer LABS NOTED. Assessment: 07/05/18 14:39 COMPLETION OF DETOX REGIMEN. 07/05/18 14:45 Plan: SINCE PATIENT DENIES CURRENT WITHDRAWAL / DETOX SYMPTOMS AND REPORTS THAT HE FEELS WELL OVERALL, AT PATIENTS REQUEST, HE WAS GRANTED AN EARLY DISCHARGE FROM DETOX UNIT TODAY SO THAT HE MAY PROCEED ON TO AFTERCARE PLAN - [facility] ([place], [place]).
--- NOTE | 2018-07-05 14:50 | DS ---
[facility] Detox Discharge Summary Admission Date: 07/02/18 Discharge Date: 07/05/18 - History Present History: Alcohol Dependence, Cocaine Dependence, Opioid Dependence, Sedative Dependence, MMTP Additional Comments: PATIENT DENIES CURRENT WITHDRAWAL / DETOX SYMPTOMS AND REPORTS THAT HE FEELS WELL OVERALL AT TIME OF DISCHARGE FROM DETOX UNIT. PATIENT GOING TO [facility] ([place] [address] FOR AFTERCARE. PRIOR TO DISCHARGE FROM DETOX UNIT, PATIENT REPORTS HISTORY OF PRESCRIBED CLONAZEPAM USE. PATIENT ADVISED TO FOLLOW-UP WITH WITH PREVIOUS PRESCRIBING MEDICAL PROVIDER DR. SHAY DO AFTER DISCHARGE FROM REHAB UNIT FOR FURTHER MEDICAL EVALUATION OF HISTORY OF PRESCRIBED CLONAZEPAM AND FOR ELEVATED LIVER ENZYMES NOTED ON ADMISSION AND ON REPEAT ASSESSMENT DURING DETOX ADMISSION. PATIENT VERBALIZED UNDERSTANDING OF RECOMMENDATION. COPIES OF RESULTS OF ALL LABS DRAWN WHILE ADMITTED FOR DETOX GIVEN TO PATIENT AT TIME OF DISCHARGE FROM DETOX UNIT. PATIENT WAS DISCHARGED FROM DETOX UNIT TO BE TAKEN OVER TO REHAB UNIT IN STABLE MEDICAL CONDITION. Pertinent Past History: HTN, Gout, Hep C, Epistaxis, Bradycardia, Depression, Nicotine Dependence, M.M.T.P., I.V.D.U. (Intravenous Drug User). - Physical Exam Results Vital Signs: Vital Signs Temperature 96.5 F L 07/05/18 09:10 Pulse Rate 70 07/05/18 09:10 Respiratory Rate 18 07/05/18 09:10 Blood Pressure 106/64 07/05/18 09:10 O2 Sat by Pulse Oximetry (%) Pertinent Admission Physical Exam Findings: WITHDRAWAL SYMPTOMS. Laboratory Tests 07/03/18 07/03/18 07/03/18 07:00 07:00 07:00 WBC 4.9 RBC 3.89 L Hgb 12.6 Hct 36.8 MCV 94.7 MCH 32.3 MCHC 34.2 RDW 13.1 Plt Count 150 D MPV 8.5 Sodium 139 Potassium 4.0 Chloride 104 Carbon Dioxide 31 Anion Gap 4 L BUN 18 Creatinine 0.7 Creat Clearance w eGFR 124.28 Random Glucose 105 Calcium 8.8 Total Bilirubin 0.4 AST 91 H ALT 144 H Alkaline Phosphatase 149 H Total Protein 8.0 Albumin 3.4 Urine Color Urine Appearance Urine pH Ur Specific [place] Urine Protein Urine Glucose (UA) Urine Ketones Urine Blood Urine Nitrite Urine Bilirubin Urine Urobilinogen Ur Leukocyte Esterase RPR Titer Nonreactive 07/03/18 07/05/18 10:15 07:00 WBC RBC Hgb Hct MCV MCH MCHC RDW Plt Count MPV Sodium Potassium Chloride Carbon Dioxide Anion Gap BUN Creatinine Creat Clearance w eGFR Random Glucose Calcium Total Bilirubin AST 96 H ALT Alkaline Phosphatase Total Protein Albumin Urine Color Yellow Urine Appearance Clear Urine pH 5.5 Ur Specific [place] 1.021 Urine Protein Negative Urine Glucose (UA) Negative Urine Ketones Negative Urine Blood Negative Urine Nitrite Negative Urine Bilirubin Negative Urine Urobilinogen 1.0 Ur Leukocyte Esterase Negative RPR Titer LABS NOTED. - Treatment Hospital Course: Detox Protocol Followed, Detoxed Safely, Responded well, Discharged Condition Good, Rehab Referral Accepted Patient has Accepted a Rehab Referral to: [facility] ([place], [place]). 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 (4) Cocaine dependence Status: Chronic (5) Gout Status: Chronic Qualifiers: Gout site: foot Gout etiology: unspecified cause Chronicity: unspecified Laterality: unspecified laterality Qualified Code(s): M10.9 - Gout, unspecified (6) Hypertension Status: Chronic Qualifiers: Hypertension type: essential hypertension Qualified Code(s): I10 - Essential (primary) hypertension (7) IVDU (intravenous drug user) Status: Chronic (8) Nicotine dependence, uncomplicated Status: Chronic Qualifiers: Nicotine product type: cigarettes Qualified Code(s): F17.210 - Nicotine dependence, cigarettes, uncomplicated (9) Opioid dependence on agonist therapy Status: Chronic - AMA Did Patient Leave Against Medical Advice: No
[2018-07-05] MEDS ORDERED: chlordiazePOXIDE HCL 10 MG CAPSULE PO SCH (23:00)
[2018-07-06] MEDS ORDERED: LORazepam 0.5 MG TABLET PO ONE (06:00)
== END 2018-07-05 12:56 | disposition other institution (70) | DRG 773 ==
LOC: YASAS 19:23 → Y3N 22:18
PROVIDERS: ADMIT Surgery; ATTEND Surgery
PROC: HZ2ZZZZ Detoxification Services for Substance Abuse Treatment (ICD-10-PCS; principal; 2018-07-02)
DX: F10.230 Alcohol dependence with withdrawal, uncomplicated (principal); F11.20 Opioid dependence, uncomplicated; F13.230 Sedative, hypnotic or anxiolytic dependence with withdrawal, uncomplicated; F14.20 Cocaine dependence, uncomplicated; F17.210 Nicotine dependence, cigarettes, uncomplicated; I10 Essential (primary) hypertension; R94.5 Abnormal results of liver function studies; M10.9 Gout, unspecified; B18.2 Chronic viral hepatitis C; R00.1 Bradycardia, unspecified; Z91.013 Allergy to seafood
CPT/HCPCS: 36415; 80053; 81003; 84450; 85027; 86593; 93005; 93010

== ENCOUNTER 2018-07-05 13:00 | Inpatient (IN) | payer OTHER ==
[2018-07-05] MEDS ORDERED: MENTHOL/PHENOL 1 EACH UD MM PRN (14:09)
[2018-07-05] MEDS ORDERED: MAGNESIUM HYDROX 2400MG/30ML ORAL SUSPENSION 30 ML CUP PO PRN (14:09)
[2018-07-05] MEDS ORDERED: guaiFENesin 200 MG/10 ML 10 ML UNIT-DOSE CUPS PO PRN (14:09)
[2018-07-05] MEDS ORDERED: LOPERAMIDE HCL 2 MG CAPSULE PO PRN (14:09)
[2018-07-05] MEDS ORDERED: ACETAMINOPHEN 325 MG TABLET (FP) PO PRN (14:09)
[2018-07-05] MEDS ORDERED: MAGNESIUM CITRATE 300 ML BOTTLE PO PRN (14:09)
[2018-07-05] MEDS ORDERED: P-EPHED 60MG/TRIPROLIDI 2.5MG TABLET PO PRN (14:09)
[2018-07-05] MEDS ORDERED: NICOTINE POLACRILEX 2 MG GUM BUC PRN (14:09)
[2018-07-05] MEDS ORDERED: NAPROXEN 375 MG TABLET (FP) PO PRN (14:15)
--- NOTE | 2018-07-05 14:37 | HP ---
[facility] Rehab Assess/Revision - Admission History Admitted to Rehab from: [facility] Date of Admission to Rehab: 07/05/2018 - Vital signs Vital Signs: Vital Signs Period Temp Pulse Resp BP Sys/Peterson Pulse Ox Last 24 Hr 97.8 F 70 16 114/65 - Findings Detox History & Physical reviewed: Yes Concur with findings: Yes Comments/Additional Findings: PATIENT'S MEDICAL / MEDICATION HISTORY REVIEWED PRIOR TO DISCHARGE FROM DETOX UNIT. PATIENT WAS DISCHARGED FROM DETOX UNIT TO BE TAKEN OVER TO REHAB UNIT IN STABLE MEDICAL CONDITION. Inpatient Rehab Admission - Rehab Decision to Admit Inpatient rehab admission?: Yes - Initial Determination Are CD services needed?: Yes Free of communicable disease: Yes Not in need of hospitalization: Yes - Rehab Admission Criteria Previous failed treatment: Yes Poor recovery environment: Yes Comorbidities: Yes Lacks judgement: No Patient is meeting Inpatient Rehab admission criteria:: Yes
[2018-07-05] MEDS ORDERED: MELATONIN 5 MG TABLETS PO PRN (22:00)
[2018-07-05] MEDS ORDERED: THIAMINE HCL 100 MG TABLET (FP) PO SCH (22:00)
[2018-07-06] MEDS: MAG HYDROX/AL HYDROX/SIMETH 30 ML UNIT-DOSE CUP PO PRN ×2 (02:07→08:23)
[2018-07-06] MEDS ORDERED: METHADONE HCL 10 MG TABLET PO SCH (07:00)
[2018-07-06 07:01] VITALS: TEMP 97.9
[2018-07-06] MEDS ORDERED: METHADONE HCL 10 MG TABLET ONE (07:14)
[2018-07-06] MEDS ORDERED: METHADONE 40 MG, METHADONE 30 MG PO SCH (07:15)
[2018-07-06] MEDS ORDERED: METHADONE HCL 40 MG DISPERSABLE TABLET ONE (07:15)
[2018-07-06] MEDS ORDERED: NICOTINE 14 MG/24 HOURS TOPICAL PATCH TD SCH (10:00)
[2018-07-06] MEDS ORDERED: LOSARTAN POTASSIUM 25 MG TABLET PO SCH (10:00)
[2018-07-06] MEDS ORDERED: PRENATAL VITAMINS W/ FOLIC ACID TABLET (FP) PO SCH (10:00)
[2018-07-06 12:00] VITALS: BP 110/56; PULSE 71
--- NOTE | 2018-07-06 13:47 | PN ---
[facility] Progress Note Note: patient has violent behavior.please see the nursing and counselor pipe and boiler covers supervisor Christen Schmitt note has been ambulating with cane on methadone maintenance 70 mgs/day nursing pipe and boiler covers supervisor gerda Harkins present in the unit patient refer to [facility] today,bed is available in [facility] for the patient patient will have a bed available at [facility] on 05/09/18 and will be medicated at [facility] for methadone maintenance Vital Signs Temperature 97.9 F 07/06/18 06:59 Pulse Rate 71 07/06/18 12:00 Respiratory Rate 18 07/06/18 12:00 Blood Pressure 110/56 L 07/06/18 12:00 O2 Sat by Pulse Oximetry (%) patient refused the refer,walked off the unit with securities left ama left the unit in stable condition,no suicidal,no homicidal metrocard given to patient by securities
--- NOTE | 2018-07-06 14:09 | PN ---
[facility] Progress Note Note: discharge note date of admission 07/05/18 date of discharge 07/06/18 diagnosis alcohol dependence cocaine dependence nicotine dependence mmtp 70 mgs/day gout history of IVDU ambulation with cane patient left AMA please see the previous note,refusal the refer
== END 2018-07-06 13:30 | disposition left against medical advice (07) | DRG 770 ==
LOC: YASAS 13:00 → Y5N 13:01
PROVIDERS: ADMIT Neuromusculoskeletal Medicine & OMM; ATTEND Neuromusculoskeletal Medicine & OMM
PROC: HZ42ZZZ Group Counseling for Substance Abuse Treatment, Cognitive-Behavioral (ICD-10-PCS; principal; 2018-07-05)
DX: F10.20 Alcohol dependence, uncomplicated (principal); F11.20 Opioid dependence, uncomplicated; F13.20 Sedative, hypnotic or anxiolytic dependence, uncomplicated; F14.20 Cocaine dependence, uncomplicated; F17.210 Nicotine dependence, cigarettes, uncomplicated; I10 Essential (primary) hypertension; M10.9 Gout, unspecified; R26.2 Difficulty in walking, not elsewhere classified; Z99.89 Dependence on other enabling machines and devices; Z91.013 Allergy to seafood

== ENCOUNTER 2018-11-30 12:51 | Inpatient (IN) | payer OTHER ==
[2018-11-30 17:19] VITALS: BMI 24.0
--- NOTE | 2018-11-30 20:52 | HP ---
COWS - Scale Resting Pulse: 1= [place] 81-100 (HR: 98) Sweatin=Flushed/Facial Moisture Restless Observation: 0= Sits Still Pupil Size: 2= Moderately Dilated (Pupils = 6 mm) Bone or Joint Aches: 1= Mild Discomfort Runny Nose/ Eye Tearin= Nasal Congestion GI Upset > 30mins: 0= None Tremor Observation: 4= Gross Tremor/Twitching Yawning Observation: 1= 1-2x During Session Anxiety or Irritability: 1=Feels Anxious/Irritable Goose Flesh Skin: 0=Smooth Skin COWS Score: 13 CIWA Score - Admission Criteria OASAS Guidelines: Admission for Medically Managed Detox: Requires at least one of the followin. CIWA greater than 12 2. Seizures within the past 24 hours 3. Delirium tremens within the past 24 hours 4. Hallucinations within the past 24 hours 5. Acute intervention needed for co occurring medical disorder 6. Acute intervention needed for co occurring psychiatric disorder 7. Severe withdrawal that cannot be handled at a lower level of care (continued vomiting, continued diarrhea, abnormal vital signs) requiring intravenous medication and/or fluids 8. Admission ROS [facility] - [facility] Chief Complaint: Having withdrawal. I need detox. Allergies/Adverse Reactions: Allergies Allergy/AdvReac Type Severity Reaction Status Date / Time Fish Containing Products Allergy Severe Hives Verified 07/05/18 13:44 shellfish derived Allergy Unknown Difficulty Verified 07/05/18 13:44 Breathing SEAFOOD Allergy Unknown Difficulty Uncoded 07/05/18 13:44 Breathing History of Present Illness: 43 yo presents w/ alcohol and opioid withdrawal seeking detox. Utox: + MERVIN/FEN/MOP/OXY/MTD Heroin use began at age 21. Relapsing w/ heroin IV. States current us is 10-12 bags. Has shared needles in recent past. States methadone in urine is illicit. States no longer on MMTP. Needs program discharge verification. Hydrocodone is being prescribed. States takes for pain. Benzo use began at age 25. Didn't start using a lot until 2 years ago. Is being prescribed clonazepam. States was going to stop picking up from prescriber, but continues to sampler pickup though is not taking. Alcohol use began at age 18. Began drinking a lot at age 39. Alcohol use is 2x/ mth. Cocaine use began at age 19. Became a problem at age 40. Current use is 10-12 bags IV w/ heroin. ([place]). Nicotine use began at age 18. Smokes 3-4 cig/day. Longest length of sobriety 2-3 years ago. No hx seizures. Hx multiple overdose - last 2017. Does not have a Narcan Kit. PHMX: HTN , Hep C - not treated; sore (L) foot 07/02/18 EKG = Sinus bradycardia w/ non-specific T-wave abnormality. No significant changes from prior EKG. MHHx: Depression. Denies thoughts of harming self or others. Does not see a MH Provider. SHx: Undomiciled. Unemployed (SSI). Denies legal issues Patient Name: Refugio Douglas Date: 1975 Address: [id number], [place] [address] Sex: Male Rx Written Rx Dispensed Drug Quantity Days Supply Prescriber Name 11/27/2018 11/27/2018 hydrocodone-acetaminophen 10-325 mg tablet 60 30 Fish, Art Boothe DO 11/27/2018 11/27/2018 clonazepam 2 mg tablet 75 25 Fish, Art Boothe DO 11/03/2018 11/04/2018 hydrocodone-acetaminophen 10-325 mg tablet 60 30 Fish, Art Boothe DO 11/03/2018 11/04/2018 clonazepam 2 mg tablet 75 25 Fish, Art Boothe DO 10/11/2018 10/11/2018 clonazepam 2 mg tablet 75 25 Fish, Art Boothe DO 08/05/2018 08/13/2018 hydrocodone-acetaminophen 10-325 mg tablet 10 5 Fish, Art Boothe DO 07/24/2018 07/24/2018 clonazepam 2 mg tablet 75 25 Fish, Art Boothe DO 07/19/2018 07/23/2018 clonazepam 2 mg tablet 10 5 Fish, Art Boothe DO 07/08/2018 07/15/2018 hydrocodone-acetaminophen 10-325 mg tablet 60 30 Fish, Art Boothe DO 07/02/2018 07/09/2018 hydrocodone-acetaminophen 10-325 mg tablet 14 7 Fish, Art Boothe DO 06/24/2018 07/01/2018 hydrocodone-acetaminophen 10-325 mg tablet 14 7 Fish, Art Boothe DO 06/24/2018 06/24/2018 clonazepam 2 mg tablet 60 30 Fish, Art Boothe DO 06/03/2018 06/17/2018 hydrocodone-acetaminophen 10-325 mg tablet 30 15 Fish, Art Boothe DO 06/01/2018 06/03/2018 alprazolam 1 mg tablet 10 5 Fish, Art Boothe DO 06/03/2018 06/03/2018 alprazolam 1 mg tablet 10 5 Fish, Art Tl DO 05/24/2018 05/27/2018 clonazepam 2 mg tablet 50 25 Fish, Art Tl DO 04/22/2018 05/23/2018 hydrocodone-acetaminophen 10-325 mg tablet 60 30 Fish, Art Boothe DO 05/23/2018 05/23/2018 clonazepam 2 mg tablet 10 5 Fish, Art Tl DO 04/22/2018 04/22/2018 clonazepam 2 mg tablet 60 30 Fish, Art Boothe DO 03/27/2018 04/17/2018 clonazepam 2 mg tablet 60 30 Fish, Art Boothe DO 03/17/2018 03/20/2018 alprazolam 1 mg tablet 20 10 Fish, Art Tl DO 03/11/2018 03/11/2018 hydrocodone-acetaminophen 10-325 mg tablet 90 30 Fish, Art lT DO 03/05/2018 03/06/2018 alprazolam 1 mg tablet 30 15 Fish, Art Boothe DO Patient Name: Refugio Douglas Date: 1975 Address: [address] [address] Sex: Male Rx Written Rx Dispensed Drug Quantity Days Supply Prescriber Name 10/11/2018 10/11/2018 hydrocodone-acetaminophen 10-325 mg tablet 14 7 Fish, Art Boothe DO Patient Name: Refugio Douglas Date: 1975 Address: [id number] [address] Sex: Male Rx Written Rx Dispensed Drug Quantity Days Supply Prescriber Name 02/26/2018 02/26/2018 clonazepam 1 mg tablet 60 30 Fish, Art Tl DO 02/23/2018 02/23/2018 alprazolam 1 mg tablet 30 10 Fish, Art Boothe DO 01/28/2018 02/13/2018 hydrocodone-acetaminophen 10-325 mg tablet 90 30 Fish, Art Boothe DO 02/04/2018 02/13/2018 alprazolam 1 mg tablet 30 10 Fish, Art Boothe DO 02/04/2018 02/04/2018 alprazolam 2 mg tablet 16 8 Fish, Art Boothe DO 01/28/2018 01/28/2018 clonazepam 2 mg tablet 60 30 Fish, Art Tl DO 01/28/2018 01/28/2018 alprazolam 1 mg tablet 45 15 Fish, Art Tl DO 01/10/2018 01/15/2018 hydrocodone-acetaminophen 10-325 mg tablet 90 30 Fish, Art Boothe DO 12/28/2017 01/09/2018 hydrocodone-acetaminophen 10-325 mg tablet 30 15 Fish, Art Tl DO 12/28/2017 01/02/2018 alprazolam 1 mg tablet 90 30 Fish, Art Tl DO 12/28/2017 01/02/2018 clonazepam 2 mg tablet 60 30 Fish, Art Boothe DO Patient Name: Refugio Douglas Date: 1975 Address: [address] [place] [address] Sex: Male Rx Written Rx Dispensed Drug Quantity Days Supply Prescriber Name 12/29/2017 12/29/2017 hydrocodone-acetaminophen 10-325 mg tablet 30 15 Fish, Art Tl DO 11/21/2017 12/05/2017 hydrocodone-acetaminophen 10-325 mg tablet 50 12 Fish, Art Boothe DO 12/05/2017 12/05/2017 clonazepam 2 mg tablet 60 30 Fish, Art Boothe DO 12/05/2017 12/05/2017 alprazolam 2 mg tablet 60 30 Fish, Art Boothe DO 12/05/2017 12/05/2017 hydrocodone-acetaminophen 10-325 mg tablet 28 14 Fish, Art Boothe DO Exam Limitations: No Limitations - Ebola screening Have you traveled outside of the country in the last 21 days: No (N) Have you had contact with anyone from an Ebola affected area: No Have you been sick,other than usual withdrawal symptoms: No Do you have a fever: No - Review of Systems Constitutional: Chills, Diaphoresis, Changes in sleep (Difficulty staying asleep ) EENT: reports: Blurred Vision, Nose Congestion Respiratory: reports: Shortness of Breath (triggered by cocaine use. No SOB @ this time.) Cardiac: reports: No Symptoms Reported GI: reports: Constipated (Last BM today - hard dark brown.), Abdominal cramping : reports: Other (Change in urinary flow. Used to be on Flomax) Musculoskeletal: reports: Back Pain, Joint Pain (Ankles &, toes r/t frequent walking; Back pain r/t withdrawals. Dull back pain r/t weather changes.), Other (Foot pain. States from shoes and walking too much) Integumentary: reports: Other (Broken water blister on ankle area) Neuro: reports: Numbness (in fingertips), Tremors Endocrine: reports: Increased Thirst Hematology: reports: Anemia (iron deficiency) Psychiatric: reports: Orientated x3, Agitated, Anxious, Depressed (Denies thoughts of harming self or others) Patient History - Patient Medical History Hx Anemia: Yes Hx Asthma: No Hx Chronic Obstructive Pulmonary Disease (COPD): No Hx Cancer: No Hx Cardiac Disorders: No Hx Congestive Heart Failure: No Hx Hypertension: Yes (losartan) Hx Hypercholesterolemia: No Hx Pacemaker: No HX Cerebrovascular Accident: No Hx Seizures: No Hx Dementia: No Hx Diabetes: No Hx Gastrointestinal Disorders: No Hx Liver Disease: No Hx Genitourinary Disorders: No Hx Sexually Transmitted Disorders: No Hx Renal Disease (ESRD): No Hx Thyroid Disease: No Hx Human Immunodeficiency Virus (HIV): No (Last tested Feb 2018 Neg results ) Hx Hepatitis C: Yes Hx Depression: Yes Hx Suicide Attempt: No Hx Bipolar Disorder: No Hx Schizophrenia: No - Patient Surgical History Past Surgical History: Yes Hx Neurologic Surgery: No Hx Cataract Extraction: No Hx Cardiac Surgery: No Hx Lung Surgery: No Hx Breast Surgery: No Hx Breast Biopsy: No Hx Abdominal Surgery: No Hx Appendectomy: No Hx Cholecystectomy: No Hx Genitourinary Surgery: No Hx Section: No Hx Orthopedic Surgery: Yes (left knee sx 2007) Anesthesia Reaction: No - PPD History Previous Implant?: Yes Documented Results: Negative w/proof Implanted On Prior R Admission?: Yes Date: 05/02/18 Results: 0 mm. PPD to be Administered?: No - Smoking Cessation Smoking history: Current every day smoker Have you smoked in the past 12 months: Yes Aproximately how many cigarettes per day: 3 Cigars Per Day: 0 Hx Chewing Tobacco Use: No Initiated information on smoking cessation: Yes 'Breaking Loose' booklet given: 11/30/18 - Substance & Tx. History Hx Alcohol Use: Yes Hx Substance Use: Yes Substance Use Type: Alcohol, Cocaine, Heroin, Opiates, Tranquilizers Hx Substance Use Treatment: Yes (rehab, detox, past MMTP) - Substances abused Cocaine Substance route: Injection Frequency: Daily Amount used: 10 to 12 bags Age of first use: 19 Date of last use: 11/30/18 Heroin Substance route: Injection Frequency: Daily Amount used: 10 to 12 bags Age of first use: 21 Date of last use: 11/30/18 Benzodiazepine (Klonopin) Other (specify): Ativan,Xanax, Substance route: Oral Frequency: 3-6 times per week Amount used: 1 tab of 2 mg. Age of first use: 25 Date of last use: 11/22/18 Alcohol Substance route: Oral Frequency: 3-6 times per week Amount used: 4 shots of rum Age of first use: 19 Date of last use: 11/29/18 Family Disease History - Family Disease History Family Disease History: Diabetes: Grandparent () Admission Physical Exam [facility] - Vital Signs Vital Signs: Vital Signs - 24 hr 11/30/18 17:10 Temperature 98.7 F Pulse Rate 98 H Respiratory 19 Rate Blood Pressure 136/77 - Physical General Appearance: Yes: Mild Distress, Tremorous, Sweating (Increased facial moisture), Anxious HEENTM: Yes: EOMI, Hearing grossly Normal, Normocephalic, Normal Voice, [place] ( Pupils = 6 mm), Pharynx Normal Respiratory: Yes: Lungs Clear, Normal Breath Sounds, No Respiratory Distress Neck: Yes: No masses,lesions,Nodules, Supple Breast: Yes: Breast Exam Deferred Cardiology: Yes: Regular Rhythm, Regular Rate, S1, S2 Abdominal: Yes: Non Tender, Soft, Increased Bowel Sounds Genitourinary: Yes: Within Normal Limits Back: Yes: Normal Inspection Musculoskeletal: Yes: full range of Motion, Gait Steady Extremities: Yes: Normal Capillary Refill, Tremors, Pedal Edema (Bilateral. Pedal pulses +.) Neurological: Yes: deck molder II-XII NML intact, Fully Oriented, Alert, Motor Strength 5/5 Integumentary: Yes: Normal Color, Warm, Diaphoresis (Increased facial moisture) , Track Johnson (Old and new track johnson. No increased warmth or erythema), Other (Circular 1 cm ulceration (L) heel w/ bleeding.) Lymphatic: Yes: Within Normal Limits - Diagnostic (1) Opioid dependence with withdrawal Current Visit: Yes Status: Acute (2) Alcohol use disorder, mild, abuse Current Visit: Yes Status: Acute (3) Cocaine dependence Current Visit: Yes Status: Chronic (4) Hypertension Current Visit: Yes Status: Chronic Qualifiers: Hypertension type: essential hypertension Qualified Code(s): I10 - Essential (primary) hypertension (5) IVDU (intravenous drug user) Current Visit: Yes Status: Chronic (6) Nicotine dependence, uncomplicated Current Visit: Yes Status: Chronic Qualifiers: Nicotine product type: cigarettes Qualified Code(s): F17.210 - Nicotine dependence, cigarettes, uncomplicated (7) Skin ulcer of left heel, limited to breakdown of skin Current Visit: Yes Status: Acute (8) Pedal edema Current Visit: Yes Status: Chronic Comment: Pedal pulses (+). Cleared for Admission S - Detox or Rehab [facility] Level of Care: Medically Managed Detox Regimen/Protocol: Methadone Claeared for Rehab Admission: No Breathalyzer - Breathalyzer Breathalyzer: 0 Urine Drug Screen - Test Device Lot number: [id number] Expiration date: 08/23/20 - Control Is test valid?: Yes - Results Drug screen NEGATIVE: No Urine drug screen results: MERVIN-Cocaine, FEN-Fentanyl, MOP-Opiates, OXY-Oxycodone , MTD-Methadone Inpatient Rehab Admission - Rehab Decision to Admit Inpatient rehab admission?: No
[2018-11-30] MEDS ORDERED: METHADONE HCL 10 MG TABLET (FOR DETOX USE ONLY) PO ONE (21:26)
[2018-11-30] MEDS ORDERED: MAG HYDROX/AL HYDROX/SIMETH 30 ML UNIT-DOSE CUP PO PRN (21:26)
[2018-11-30] MEDS ORDERED: MAGNESIUM HYDROX 2400MG/30ML ORAL SUSPENSION 30 ML CUP PO PRN (21:26)
[2018-11-30] MEDS ORDERED: cloNIDine HCL 0.1 MG TABLET PO PRN (21:26)
[2018-11-30] MEDS ORDERED: MAGNESIUM CITRATE 300 ML BOTTLE PO PRN (21:26)
[2018-11-30] MEDS ORDERED: BISMUTH SUBSALICYLATE 524 MG/30 ML UD PO PRN (21:26)
[2018-11-30] MEDS ORDERED: ACETAMINOPHEN 325 MG TABLET (FP) PO PRN (21:26)
[2018-11-30] MEDS ORDERED: MENTHOL/PHENOL 1 EACH UD MM PRN (21:26)
[2018-11-30] MEDS ORDERED: NICOTINE POLACRILEX 2 MG GUM BUC PRN (21:26)
[2018-11-30] MEDS: THIAMINE HCL 100 MG TABLET (FP) PO SCH (23:39)
[2018-12-01] MEDS ORDERED: METHADONE HCL 10 MG TABLET (FOR DETOX USE ONLY) ONE (09:58)
[2018-12-01] MEDS ORDERED: METHADONE HCL 5 MG TABLET (FOR DETOX USE ONLY) ONE (09:59)
[2018-12-01] MEDS ORDERED: METHADONE (DETOX) 20 MG, METHADONE (DETOX) 5 MG PO ONE (10:00)
[2018-12-01 10:26] LABS: HEMATOCRIT 30.3 % (35.4-49); HEMOGLOBIN 10.5 GM/dL (11.7-16.9); MCH 32.4 pg (25.7-33.7); MCHC 34.6 g/dl (32.0-35.9); MEAN CELL VOLUME 93.8 fl (80-96); MEAN PLT VOLUME 8.9 fl (7.5-11.1); PLATELET COUNT 118 K/MM3 (134-434); RBC 3.23 M/mm3 (4.00-5.60); RDW 14.4 % (11.9-15.9); WHITE BLOOD COUNT 8.4 K/mm3 (4.0-10.0)
[2018-12-01] MEDS: BACITRACIN 0.9 GM PACKET TP SCH ×2 (10:30→22:32)
[2018-12-01 10:36] LABS: ALBUMIN 2.6 g/dl (3.4-5.0); BILIRUBIN,TOTAL 1.7 mg/dL (0.2-1); BLOOD UREA NITROGEN 13.3 mg/dL (7-18); CALCIUM 8.3 mg/dL (8.5-10.1); CREATININE 0.7 mg/dL (0.55-1.3); POTASSIUM 3.5 mmol/L (3.5-5.1); TOT PROT 7.2 g/dl (6.4-8.2)
[2018-12-01] MEDS: PRENATAL VITAMINS W/ FOLIC ACID TABLET (FP) PO SCH (11:02)
[2018-12-01] MEDS: METHOCARBAMOL 500 MG TABLET PO PRN ×2 (11:04→22:33)
[2018-12-01] MEDS: LOSARTAN POTASSIUM 25 MG TABLET PO SCH (11:27)
[2018-12-01] MEDS: IBUPROFEN 400 MG TABLET (FP) PO PRN (14:27)
--- NOTE | 2018-12-01 15:16 | PN ---
BHS COWS - Scale Resting Pulse: 0= [place] 80 or Below Sweatin= Chills/Flushing Restless Observation: 3= Extraneous Movement Pupil Size: 0= Normal to Room Light Bone or Joint Aches: 2= Severe Diffuse Aches Runny Nose/ Eye Tearin= Runny Nose/Eyes GI Upset > 30mins: 2= Nausea/Diarrhea Tremor Observation of Outstretched Hands: 2= Slight Tremor Visible Yawning Observation: 0= None Anxiety or Irritability: 2=Irritable/Anxious Goose Flesh Skin: 0=Smooth Skin COWS Score: 14 BHS Progress Note (SOAP) Subjective: Body ache, sweating, chills Objective: 12/01/18 15:10 Last Vital Signs Temp Pulse Resp BP Pulse Ox 97.7 F 72 18 124/65 12/01/18 13:08 12/01/18 13:08 12/01/18 13:08 12/01/18 13:08 Laboratory Tests 12/01/18 12/01/18 12/01/18 08:00 08:00 08:00 WBC 8.4 RBC 3.23 L Hgb 10.5 L Hct 30.3 L D MCV 93.8 MCH 32.4 MCHC 34.6 RDW 14.4 Plt Count 118 L D MPV 8.9 Sodium 136 Potassium 3.5 Chloride 102 Carbon Dioxide 28 Anion Gap 6 L BUN 13.3 Creatinine 0.7 Est GFR (CKD-EPI)AfAm 135.86 Est GFR (CKD-EPI)NonAf 117.22 Random Glucose 130 H Calcium 8.3 L Total Bilirubin 1.7 H AST 94 H ALT 121 H Alkaline Phosphatase 107 Total Protein 7.2 Albumin 2.6 L HIV 1&2 Antibody Screen Cancelled HIV P24 Antigen Cancelled Labs reviewed: h/h 10.5/30.3, plt 118, glucose 130, total bilirubin 1.7, AST/ ALT 94/121, albumin 2.6 Assessment: 12/01/18 15:16 Withdrawal sxs Noted with anemia, pancytopenia, elevated LFTs and hyperglycemia Plan: Continue detox Encouraged PO water intake Anemia: most likely r/t chronic alcoholism, send iron studies Pancytopenia: most likely r/t chronic alcoholism, encourage abstinence from alcohol and all illicit substances, follow up with PCP for monitoring Elevated LFTs: repeat hepatic panel Hyperglycemia: repeat fasting glucose, send HbA1c
[2018-12-01] MEDS: MELATONIN 5 MG TABLETS PO PRN (22:31)
[2018-12-01] MEDS: THIAMINE HCL 100 MG TABLET (FP) PO SCH (22:32)
--- NOTE | 2018-12-02 09:34 | PN ---
BHS COWS - Scale Resting Pulse: 0= [place] 80 or Below Sweatin= Chills/Flushing Restless Observation: 1= Difficult to Sit Still Pupil Size: 0= Normal to Room Light Bone or Joint Aches: 2= Severe Diffuse Aches Runny Nose/ Eye Tearin= Nasal Congestion GI Upset > 30mins: 1= Stomach Cramp Tremor Observation of Outstretched Hands: 2= Slight Tremor Visible Yawning Observation: 0= None Anxiety or Irritability: 1=Feels Anxious/Irritable Goose Flesh Skin: 0=Smooth Skin COWS Score: 9 BHS Progress Note (SOAP) Subjective: Patient is still in mild to moderate withdrawals. Seen in bed and somewhat uncomfortable. Objective: 12/02/18 09:31 BP: 112/60 P:75 R:17 T:98.2 Abnormal Lab Results 12/01/18 12/01/18 08:00 08:00 RBC 3.23 L Hgb 10.5 L Hct 30.3 L D Plt Count 118 L D Anion Gap 6 L Random Glucose 130 H Calcium 8.3 L Total Bilirubin 1.7 H AST 94 H ALT 121 H Albumin 2.6 L Assessment: 12/02/18 09:31 1. Opioid Dependence 2. Abnormal labs noted Plan: 1. Patient encouraged to hydrate well. Encouraged that he will feel better as detox progresses. 2. Noted Low AG, Low Albumin, consistent with poor nutritional status. Elevated ALT/AST - consider HCV testing if he has no alcohol intake. Normocytic normochromic anemia: May be a combined deficiency of nutrients or chronic in nature. HIV testing still pending.
[2018-12-02] MEDS ORDERED: METHADONE HCL 10 MG TABLET (FOR DETOX USE ONLY) PO ONE (10:00)
[2018-12-02] MEDS: IBUPROFEN 400 MG TABLET (FP) PO PRN ×2 (10:43→20:32)
[2018-12-02] MEDS: BACITRACIN 0.9 GM PACKET TP SCH (10:44)
[2018-12-02] MEDS: LOSARTAN POTASSIUM 25 MG TABLET PO SCH (10:44)
[2018-12-02] MEDS: PRENATAL VITAMINS W/ FOLIC ACID TABLET (FP) PO SCH (10:45)
[2018-12-02 12:59] LABS: PH,URINE 6.5 (5.0-8.0); URINE APPEARANCE CLEAR; URINE BILIRUBIN NEGATIVE (NEGATIVE); URINE COLOR YELLOW; URINE GLUCOSE (UA) NEGATIVE (NEGATIVE); URINE KETONE NEGATIVE (NEGATIVE); URINE LEUK ESTERASE NEGATIVE (NEGATIVE); URINE NITRITE NEGATIVE (NEGATIVE); URINE PROTEIN NEGATIVE (NEGATIVE)
[2018-12-02 13:51] LABS: BILIRUBIN,DIRECT 0.9 mg/dL (0.0-0.2); BILIRUBIN,TOTAL 1.4 mg/dL (0.2-1); TOT PROT 7.8 g/dl (6.4-8.2)
--- NOTE | 2018-12-02 17:23 | PN ---
S Progress Note Note: Follow-up evaluation of feet. Edema in (R) foot has decreased significantly. Edema in (L) foot remains, but less than on admission. (L) great toenail is now missing and old dried blood noted on cuticle. No increased warmth or erythema. Foot elevation encouraged. Bacitracin to cuticle area BID.
[2018-12-02] MEDS: METHOCARBAMOL 500 MG TABLET PO PRN (19:26)
[2018-12-02] MEDS: MELATONIN 5 MG TABLETS PO PRN (22:41)
[2018-12-02] MEDS: THIAMINE HCL 100 MG TABLET (FP) PO SCH (22:41)
[2018-12-02] MEDS: BACITRACIN 15 GM TUBE TOPICAL OINTMENT TP SCH (22:41)
[2018-12-03] MEDS: METHOCARBAMOL 500 MG TABLET PO PRN ×2 (02:38→14:36)
[2018-12-03] MEDS ORDERED: METHADONE HCL 10 MG TABLET (FOR DETOX USE ONLY) ONE (09:56)
[2018-12-03] MEDS ORDERED: METHADONE HCL 5 MG TABLET (FOR DETOX USE ONLY) ONE (09:57)
[2018-12-03] MEDS ORDERED: METHADONE (DETOX) 10 MG, METHADONE (DETOX) 5 MG PO ONE (10:00)
[2018-12-03] MEDS: PRENATAL VITAMINS W/ FOLIC ACID TABLET (FP) PO SCH (10:10)
[2018-12-03] MEDS: IBUPROFEN 400 MG TABLET (FP) PO PRN ×3 (10:14→22:08)
--- NOTE | 2018-12-03 10:29 | PN ---
BHS COWS - Scale Resting Pulse: 1= [place] 81-100 Sweatin= No chills or Flushing Restless Observation: 1= Difficult to Sit Still Pupil Size: 1= Pupils >than Normal Bone or Joint Aches: 1= Mild Discomfort Runny Nose/ Eye Tearin= Nasal Congestion GI Upset > 30mins: 1= Stomach Cramp Tremor Observation of Outstretched Hands: 1= Tremor [place], Not Seen Yawning Observation: 1= 1-2x During Session Anxiety or Irritability: 1=Feels Anxious/Irritable Goose Flesh Skin: 0=Smooth Skin COWS Score: 9 BHS Progress Note (SOAP) Subjective: alert,irritable,anxious,interrupted sleep,pain in the body Objective: 12/03/18 10:28 Vital Signs Temperature 98.1 F 12/03/18 09:40 Pulse Rate 81 12/03/18 09:40 Respiratory Rate 16 12/03/18 09:40 Blood Pressure 103/73 12/03/18 09:40 O2 Sat by Pulse Oximetry (%) Assessment: 12/03/18 10:29 withdrawal symptom Plan: continue detox methadone regimen
--- NOTE | 2018-12-03 10:32 | PN ---
BHS Progress Note Note: anemia,on ferrous sulfate 325 mgs po bid
[2018-12-03] MEDS: BACITRACIN 15 GM TUBE TOPICAL OINTMENT TP SCH ×2 (11:56→22:46)
[2018-12-03] MEDS: FERROUS SO4 325 MG TABLET (FP) PO SCH ×2 (11:56→22:07)
[2018-12-03] MEDS: LOSARTAN POTASSIUM 25 MG TABLET PO SCH (14:31)
[2018-12-03] MEDS: ACETAMINOPHEN 325 MG TABLET (FP) PO PRN (17:29)
[2018-12-03] MEDS: clonazePAM 0.5 MG TABLET PO PRN (17:29)
[2018-12-03] MEDS: THIAMINE HCL 100 MG TABLET (FP) PO SCH (22:07)
[2018-12-03] MEDS: MELATONIN 5 MG TABLETS PO PRN (22:07)
[2018-12-04] MEDS: clonazePAM 0.5 MG TABLET PO PRN ×2 (06:20→13:45)
[2018-12-04] MEDS: IBUPROFEN 400 MG TABLET (FP) PO PRN (06:22)
[2018-12-04] MEDS ORDERED: METHADONE HCL 10 MG TABLET (FOR DETOX USE ONLY) PO ONE (10:00)
--- NOTE | 2018-12-04 10:12 | PN ---
BHS COWS - Scale Resting Pulse: 0= [place] 80 or Below Sweatin= No chills or Flushing Restless Observation: 1= Difficult to Sit Still Pupil Size: 1= Pupils >than Normal Bone or Joint Aches: 1= Mild Discomfort Runny Nose/ Eye Tearin= Nasal Congestion GI Upset > 30mins: 1= Stomach Cramp Tremor Observation of Outstretched Hands: 1= Tremor [place], Not Seen Yawning Observation: 1= 1-2x During Session Anxiety or Irritability: 2=Irritable/Anxious Goose Flesh Skin: 0=Smooth Skin COWS Score: 9 BHS Progress Note (SOAP) Subjective: alert,irritable,anxious,interrupted sleep,pain in the body Objective: 12/04/18 10:11 Vital Signs Temperature 97.2 F L 12/04/18 09:34 Pulse Rate 76 12/04/18 09:34 Respiratory Rate 18 12/04/18 09:34 Blood Pressure 118/59 L 12/04/18 09:34 O2 Sat by Pulse Oximetry (%) Assessment: 12/04/18 10:11 withdrawal symptom Plan: continue detox methadone regimen,discharge in am
[2018-12-04] MEDS: LOSARTAN POTASSIUM 25 MG TABLET PO SCH (10:20)
[2018-12-04] MEDS: FERROUS SO4 325 MG TABLET (FP) PO SCH ×2 (10:20→23:04)
[2018-12-04] MEDS: PRENATAL VITAMINS W/ FOLIC ACID TABLET (FP) PO SCH (10:20)
[2018-12-04] MEDS: BACITRACIN 15 GM TUBE TOPICAL OINTMENT TP SCH ×2 (10:22→23:04)
[2018-12-04] MEDS: ACETAMINOPHEN 325 MG TABLET (FP) PO PRN (10:22)
[2018-12-04] MEDS: METHOCARBAMOL 500 MG TABLET PO PRN ×2 (12:46→19:00)
--- NOTE | 2018-12-04 20:17 | PN ---
BHS Progress Note Note: jcalled to bedside to dhaval Huff found to be tremulous and shivering co myalgias, pleuritic cp and inability to tolerate po liquids solids x 24 h denies dysuria feels sx not cw opiate wd(note cows earlier) t @ bedside 102.8 p=108 shivering diaphoresis toxic appearing diffuse tracts- no erythema or induration ap opiate dep fever on d5 taper ed transfer ro pna, hydration, obs anticipate am detox dc if stabilized
[2018-12-04] MEDS: THIAMINE HCL 100 MG TABLET (FP) PO SCH (23:05)
[2018-12-05] MEDS ORDERED: METHADONE HCL 5 MG TABLET (FOR DETOX USE ONLY) PO ONE (06:00)
[2018-12-05] MEDS: IBUPROFEN 400 MG TABLET (FP) PO PRN (06:32)
[2018-12-05] MEDS ORDERED: OSELTAMIVIR PHOSPHATE 75 MG CAPSULE PO ONE (08:48)
--- NOTE | 2018-12-05 09:21 | DS ---
[facility] Detox Discharge Summary Admission Date: 11/30/18 Discharge Date: 12/05/18 - History Present History: Alcohol Dependence, Cocaine Dependence, Opioid Dependence, Sedative Dependence - Physical Exam Results Vital Signs: Vital Signs Temperature 97.5 F L 12/05/18 07:39 Pulse Rate 76 12/05/18 07:39 Respiratory Rate 18 12/05/18 07:39 Blood Pressure 105/47 L 12/05/18 07:39 O2 Sat by Pulse Oximetry (%) Pertinent Admission Physical Exam Findings: pt arrived in withdrawals Laboratory Tests 12/01/18 12/01/18 12/01/18 08:00 08:00 08:00 WBC 8.4 RBC 3.23 L Hgb 10.5 L Hct 30.3 L D MCV 93.8 MCH 32.4 MCHC 34.6 RDW 14.4 Plt Count 118 L D MPV 8.9 Sodium 136 Potassium 3.5 Chloride 102 Carbon Dioxide 28 Anion Gap 6 L BUN 13.3 Creatinine 0.7 Est GFR (CKD-EPI)AfAm 135.86 Est GFR (CKD-EPI)NonAf 117.22 Random Glucose 130 H Fasting Glucose Hemoglobin A1c % Calcium 8.3 L Iron TIBC Iron Saturation Unsaturated IBC Ferritin Total Bilirubin 1.7 H Direct Bilirubin AST 94 H ALT 121 H Alkaline Phosphatase 107 Total Protein 7.2 Albumin 2.6 L Vitamin B12 Serum Folate Urine Color Urine Appearance Urine pH Ur Specific Carlotta Urine Protein Urine Glucose (UA) Urine Ketones Urine Blood Urine Nitrite Urine Bilirubin Urine Urobilinogen Ur Leukocyte Esterase HIV 1&2 Ag/Ab, 4th Gen HIV 1&2 Antibody Screen Cancelled HIV P24 Antigen Cancelled 12/01/18 12/02/18 12/02/18 10:20 09:00 09:00 WBC RBC Hgb Hct MCV MCH MCHC RDW Plt Count MPV Sodium Potassium Chloride Carbon Dioxide Anion Gap BUN Creatinine Est GFR (CKD-EPI)AfAm Est GFR (CKD-EPI)NonAf Random Glucose Fasting Glucose 116 H Hemoglobin A1c % 4.9 Calcium Iron TIBC Iron Saturation Unsaturated IBC Ferritin Total Bilirubin 1.4 H Direct Bilirubin 0.9 H AST 100 H ALT 124 H Alkaline Phosphatase 127 H Total Protein 7.8 Albumin 3.0 L Vitamin B12 Serum Folate 17 Urine Color Urine Appearance Urine pH Ur Specific Carlotta Urine Protein Urine Glucose (UA) Urine Ketones Urine Blood Urine Nitrite Urine Bilirubin Urine Urobilinogen Ur Leukocyte Esterase HIV 1&2 Ag/Ab, 4th Gen Non reactive HIV 1&2 Antibody Screen HIV P24 Antigen 12/02/18 12/02/18 09:00 09:00 WBC RBC Hgb Hct MCV MCH MCHC RDW Plt Count MPV Sodium Potassium Chloride Carbon Dioxide Anion Gap BUN Creatinine Est GFR (CKD-EPI)AfAm Est GFR (CKD-EPI)NonAf Random Glucose Fasting Glucose Hemoglobin A1c % Calcium Iron 56 TIBC 254 Iron Saturation 22 Unsaturated IBC 198 L Ferritin 693.4 H Total Bilirubin Direct Bilirubin AST ALT Alkaline Phosphatase Total Protein Albumin Vitamin B12 1410 H Serum Folate Urine Color Yellow Urine Appearance Clear Urine pH 6.5 Ur Specific Carlotta 1.014 Urine Protein Negative Urine Glucose (UA) Negative Urine Ketones Negative Urine Blood Negative Urine Nitrite Negative Urine Bilirubin Negative Urine Urobilinogen 1.0 Ur Leukocyte Esterase Negative HIV 1&2 Ag/Ab, 4th Gen HIV 1&2 Antibody Screen HIV P24 Antigen labs noted aaox3 ambulating no acute distress - Treatment Hospital Course: Detox Protocol Followed, Detoxed Safely, Responded well, Discharged Condition Good, Rehab Referral Accepted Patient has Accepted a Rehab Referral to: pr referred to [facility] rehab - Medication Discharge Medications: Ambulatory Orders Losartan Potassium [Cozaar] 25 mg PO DAILY 07/02/18 Oseltamivir Phosphate [Tamiflu] 1 tab PO DAILY 12/05/18 - Diagnosis (1) Alcohol use disorder, mild, abuse Current Visit: Yes Status: Acute (2) Opioid dependence with withdrawal Current Visit: Yes Status: Chronic (3) Skin ulcer of left heel, limited to breakdown of skin Current Visit: Yes Status: Chronic (4) Cocaine dependence Current Visit: Yes Status: Chronic (5) Hypertension Current Visit: Yes Status: Chronic Qualifiers: Hypertension type: essential hypertension Qualified Code(s): I10 - Essential (primary) hypertension (6) IVDU (intravenous drug user) Current Visit: Yes Status: Chronic (7) Nicotine dependence, uncomplicated Current Visit: Yes Status: Chronic Qualifiers: Nicotine product type: cigarettes Qualified Code(s): F17.210 - Nicotine dependence, cigarettes, uncomplicated (8) Opioid dependence Current Visit: Yes Status: Active (9) Sedative dependence Current Visit: Yes Status: Acute (10) Alcohol dependence with withdrawal Current Visit: Yes Status: Chronic Qualifiers: Complication of substance-induced condition: uncomplicated Qualified Code(s ): F10.230 - Alcohol dependence with withdrawal, uncomplicated (11) Elevated liver enzymes Current Visit: No Status: Acute (12) Fever and chills Current Visit: Yes Status: Acute (13) Myalgia Current Visit: Yes Status: Acute (14) Anxiolytic dependence with current use Current Visit: No Status: Chronic (15) Gout Current Visit: No Status: Chronic Qualifiers: Gout site: foot Gout etiology: unspecified cause Chronicity: unspecified Laterality: unspecified laterality Qualified Code(s): M10.9 - Gout, unspecified (16) Hepatitis C Current Visit: No Status: Chronic Qualifiers: Viral hepatitis chronicity: chronic Hepatic coma status: without hepatic coma Qualified Code(s): B18.2 - Chronic viral hepatitis C (17) Opioid dependence on agonist therapy Current Visit: No Status: Chronic (18) Flu-like symptoms Current Visit: Yes Status: Acute - AMA Did Patient Leave Against Medical Advice: No
[2018-12-05 09:25] VITALS: BP 111/97; PULSE 85; TEMP 97.2
--- NOTE | 2018-12-05 09:42 | PN ---
S Progress Note Note: pt returned from ED yesterday d/t flu like symptoms. today he continues to experience chills, fever however last temp is 97.2 . pt will begin with tamiflu 75mg daily for 10 days.
[2018-12-05] MEDS: PRENATAL VITAMINS W/ FOLIC ACID TABLET (FP) PO SCH (10:19)
[2018-12-05] MEDS: LOSARTAN POTASSIUM 25 MG TABLET PO SCH (10:19)
[2018-12-05] MEDS: FERROUS SO4 325 MG TABLET (FP) PO SCH (10:19)
[2018-12-05] MEDS: BACITRACIN 15 GM TUBE TOPICAL OINTMENT TP SCH (10:21)
[2018-12-06] MEDS ORDERED: OSELTAMIVIR PHOSPHATE 75 MG CAPSULE PO ONE (09:31)
[2018-12-06] MEDS ORDERED: OSELTAMIVIR PHOSPHATE 75 MG CAPSULE PO SCH (10:00)
== END 2018-12-05 12:47 | disposition other institution (70) | DRG 773 ==
LOC: YASAS 12:51 → Y6N 21:31
PROVIDERS: ADMIT Surgery; ATTEND Surgery
PROC: HZ2ZZZZ Detoxification Services for Substance Abuse Treatment (ICD-10-PCS; principal; 2018-11-30)
DX: F11.23 Opioid dependence with withdrawal (principal); F10.230 Alcohol dependence with withdrawal, uncomplicated; F13.230 Sedative, hypnotic or anxiolytic dependence with withdrawal, uncomplicated; F14.20 Cocaine dependence, uncomplicated; F17.210 Nicotine dependence, cigarettes, uncomplicated; I10 Essential (primary) hypertension; R94.5 Abnormal results of liver function studies; M10.9 Gout, unspecified; B18.2 Chronic viral hepatitis C; L97.421 Non-pressure chronic ulcer of left heel and midfoot limited to breakdown of skin; J11.1 Influenza due to unidentified influenza virus with other respiratory manifestations; D64.9 Anemia, unspecified; R60.0 Localized edema; R79.89 Other specified abnormal findings of blood chemistry; R73.9 Hyperglycemia, unspecified; D61.818 Other pancytopenia; Z91.013 Allergy to seafood
CPT/HCPCS: 36415; 80053; 80076; 81003; 82607; 82728; 82746; 82947; 83036; 83540; 83550; 85027; 87389

== ENCOUNTER 2018-12-04 22:00 | Emergency (ER) | payer OTHER ==
[2018-12-04 22:06] VITALS: BMI 24.3
[2018-12-05] MEDS ORDERED: SODIUM CHLORIDE 0.9% 1000 ML INFUS.BAG IV ONE (00:07)
[2018-12-05] MEDS ORDERED: ACETAMINOPHEN 1000 MG/100 ML VIAL (NON FORMULARY) IVPB ONE (00:08)
--- NOTE | 2018-12-05 00:12 | PDOC ---
Attending Attestation - Resident Resident Name: RidgericardoCandy [email or web address] - ED Attending Attestation I have performed the following: I have examined & evaluated the patient, The case was reviewed & discussed with the resident, I agree w/resident's findings & plan - HPI HPI: 12/05/18 04:09 see resident hpi - Physicial Exam PE: 12/05/18 04:09 aree with resio - Medical Decision Making 12/05/18 04:10 43-year-old male currently undergoing detox for cocaine and heroin with worsening cough intermittent headaches and body aches Chest x-ray shows no focal infiltrate There are no meningeal signs on exam Will DC back to facility with outpatient follow-up
[2018-12-05] MEDS ORDERED: ACETAMINOPHEN INJECTION 100 ML IVPB ONE (01:00)
[2018-12-05 01:18] LABS: BASO % 0.5 % (0-2.0); EOS % 0.2 % (0-4.5); HEMATOCRIT 31.5 % (35.4-49); HEMOGLOBIN 10.6 GM/dL (11.7-16.9); LYMPH % 9.5 % (8-40); MCH 31.7 pg (25.7-33.7); MCHC 33.6 g/dl (32.0-35.9); MEAN CELL VOLUME 94.5 fl (80-96); MONO % 8.3 % (3.8-10.2); NEUT % 81.5 % (42.8-82.8); PLATELET COUNT 113 K/MM3 (134-434); RBC 3.33 M/mm3 (4.00-5.60); RDW 14.5 % (11.9-15.9); WHITE BLOOD COUNT 10.5 K/mm3 (4.0-10.0)
--- NOTE | 2018-12-05 01:28 | PDOC ---
History of Present Illness - General Chief Complaint: Cold Symptoms Stated Complaint: FEVER Time Seen by Provider: 12/05/18 00:07 History Source: Patient Exam Limitations: No Limitations - History of Present Illness Initial Comments: 12/05/18 01:15 43M with a PMH of hep C (not on medications) and heroine and cocaine abuse ( currently in day 5 of detox) who presents to the ER with complaints of fevers and myalgias. The patient states that he's had 1 day of fever, myalgias, rhinorrhea, and headache. He denies neck stiffness, rash, cough, sore throat. States that he may have sick contacts at the detox facility. Past History - Past Medical History Allergies/Adverse Reactions: Allergies Allergy/AdvReac Type Severity Reaction Status Date / Time Fish Containing Products Allergy Severe Hives Verified 07/05/18 13:44 shellfish derived Allergy Unknown Difficulty Verified 07/05/18 13:44 Breathing SEAFOOD Allergy Unknown Difficulty Uncoded 07/05/18 13:44 Breathing Home Medications: Ambulatory Orders Losartan Potassium [Cozaar] 25 mg PO DAILY 07/02/18 Anemia: Yes Asthma: No Cancer: No Cardiac Disorders: No CVA: No COPD: No CHF: No Dementia: No Diabetes: No GI Disorders: No Disorders: No HTN: Yes (losartan) Hypercholesterolemia: No Kidney Stones: No Liver Disease: No Seizures: No Thyroid Disease: No - Surgical History Abdominal Surgery: No Appendectomy: No Cardiac Surgery: No Cholecystectomy: No Lung Surgery: No Neurologic Surgery: No Orthopedic Surgery: Yes (left knee sx 2007) - Reproductive History Testicular Surgery: No - Suicide/Smoking/Psychosocial Hx Smoking History: Never smoked Have you smoked in the past 12 months: Yes Number of Cigarettes Smoked Daily: 3 Cigars Per Day: 0 'Breaking Loose' booklet given: 11/30/18 Hx Alcohol Use: Yes Drug/Substance Use Hx: Yes Substance Use Type: Alcohol, Cocaine, Heroin, Opiates, Tranquilizers Hx Substance Use Treatment: Yes (rehab, detox, past [facility]) Review of Systems - Review of Systems Able to Perform ROS?: Yes Comments:: 12/05/18 01:33 GENERAL/CONSTITUTIONAL: + for fever and chills. No weakness. HEAD, EYES, EARS, NOSE AND THROAT: + for mild rhinorrhea. No change in vision. No ear pain or discharge. No sore throat. CARDIOVASCULAR: No chest pain, palpitations, or lightheadedness. RESPIRATORY: No cough, wheezing, shortness of breath, or hemoptysis. GASTROINTESTINAL: No abdominal pain, nausea, vomiting, diarrhea, or constipation. GENITOURINARY: No dysuria, frequency, hematuria, or change in urination. MUSCULOSKELETAL: + for myalgias. No neck or back pain. SKIN: No rash or lesions. NEUROLOGIC: + for h/a. No numbness, tingling, focal weakness, loss of consciousness, or change in strength/sensation. Is the patient limited Mongolian proficient: No *Physical Exam - Vital Signs Last Vital Signs Temp Pulse Resp BP Pulse Ox 101.6 F H 95 H 18 147/78 99 12/04/18 22:04 12/04/18 22:04 12/04/18 22:04 12/04/18 22:04 12/04/18 22:04 - Physical Exam Comments: 12/05/18 01:35 GENERAL: Well developed, well nourished. Awake and alert. No acute distress. HEENT: Normocephalic, atraumatic. Hearing grossly normal. Moist mucous membranes. PERRLA, EOMI. No conjunctival pallor. Sclera are non-icteric. Oropharynx is clear. NECK: Supple. Full ROM. No JVD. No lymphadenopathy. CARDIOVASCULAR: Regular rate and rhythm. No murmurs, rubs, or gallops. PULMONARY: No evidence of respiratory distress. Lungs clear to auscultation bilaterally. No wheezing, rales or rhonchi. ABDOMINAL: Soft. Non-tender. Non-distended. No rebound or guarding. GENITOURINARY: No CVA tenderness bilaterally. MUSCULOSKELETAL: Normal range of motion at all joints. No bony deformities or tenderness. EXTREMITIES: No cyanosis. No clubbing. No edema. No calf tenderness or swelling. SKIN: Warm and dry. Normal capillary refill. No rashes. No jaundice. NEUROLOGICAL: Alert, awake, appropriate. Cranial nerves 2-12 grossly intact. Normal speech. Gait is normal without ataxia. PSYCHIATRIC: Cooperative. Good eye contact. Appropriate mood and affect. ED Treatment Course - LABORATORY CBC & Chemistry Diagram: 12/05/18 01:10 12/05/18 01:10 - RADIOLOGY Radiology Studies Ordered: Category Date Time Status CHEST PA & LAT [RAD] Stat Radiology 12/05/18 01:04 Ordered Medical Decision Making - Medical Decision Making 12/05/18 01:36 43M with a PMH of hep C, heroine and cocaine abuse, who presents to the ER with fever and myalgias, concerning for viral infection. Will draw labs and treat with fluids and tylenol. Pending CXR. 12/05/18 02:40 Labs WNL. CXR unremarkable. Will d/c back to [facility]. 12/05/18 04:10 D/w [facility] physician who understands pt will be returning. *DC/Admit/Observation/Transfer Diagnosis at time of Disposition: Fever and chills, Myalgia - Discharge Dispostion Disposition: HOME Condition at time of disposition: Stable Decision to Admit order: No - Referrals Referrals: ON STAFF,NOT [Primary Care Provider] - - Patient Instructions Printed Discharge Instructions: How to Avoid a Cold or Flu Additional Instructions: Your ER visit is not complete until your follow up with your primary care physician. Please follow up with your primary care physician in 1-2 days. Please return to the ER if you have any signs or symptoms of chest pain, shortness of breath, uncontrollable fever, chills, nausea, vomiting, numbness, tingling, or weakness in any part of your body, changes in vision, or slurred speech. Please take your medications as prescribed. Please return to the ER if symptoms persist, worsen, or new symptoms arise. - Post Discharge Activity
[2018-12-05 01:46] LABS: ALBUMIN 2.7 g/dl (3.4-5.0); BILIRUBIN,TOTAL 0.6 mg/dL (0.2-1); BLOOD UREA NITROGEN 7.7 mg/dL (7-18); CALCIUM 8.5 mg/dL (8.5-10.1); CREATININE 0.6 mg/dL (0.55-1.3); POTASSIUM 4.7 mmol/L (3.5-5.1); TOT PROT 7.5 g/dl (6.4-8.2)
[2018-12-05 04:42] VITALS: BP 143/82; PULSE 91; TEMP 99.9
== END 2018-12-05 04:40 | disposition home or self-care (01) ==
LOC: JER 22:00 → JERFT 22:00 → JER 12-05 04:40
PROC: 3E033NZ Introduction of Analgesics, Hypnotics, Sedatives into Peripheral Vein, Percutaneous Approach (ICD-10-PCS; principal; 2018-12-04)
PROC: 3E0337Z Introduction of Electrolytic and Water Balance Substance into Peripheral Vein, Percutaneous Approach (ICD-10-PCS; 2018-12-04)
DX: J34.89 Other specified disorders of nose and nasal sinuses (principal); R50.9 Fever, unspecified; M79.10 Myalgia, unspecified site
CPT/HCPCS: 36415; 71046-TC-FY; 80053; 85025; 99282-25; J0131; J7030

== ENCOUNTER 2018-12-05 13:04 | Inpatient (IN) | payer OTHER ==
[2018-12-05] MEDS ORDERED: MAGNESIUM CITRATE 300 ML BOTTLE PO PRN (15:09)
[2018-12-05] MEDS ORDERED: hydrOXYzine PAMOATE 50 MG CAPSULE (FP) PO PRN (15:09)
[2018-12-05] MEDS ORDERED: MAG HYDROX/AL HYDROX/SIMETH 30 ML UNIT-DOSE CUP PO PRN (15:09)
[2018-12-05] MEDS ORDERED: MENTHOL/PHENOL 1 EACH UD MM PRN (15:09)
[2018-12-05] MEDS ORDERED: MAGNESIUM HYDROX 2400MG/30ML ORAL SUSPENSION 30 ML CUP PO PRN (15:09)
[2018-12-05] MEDS ORDERED: LOPERAMIDE HCL 2 MG CAPSULE PO PRN (15:09)
[2018-12-05] MEDS ORDERED: NICOTINE POLACRILEX 4 MG GUM BUC PRN (15:09)
--- NOTE | 2018-12-05 15:09 | HP ---
[facility] Rehab Assess/Revision - Admission History Admitted to Rehab from: [address] - Vital signs Vital Signs: Vital Signs Period Temp Pulse Resp BP Sys/Peterson Pulse Ox Last 24 Hr 98.7 F 88 18 120/70 - Findings Detox History & Physical reviewed: Yes Concur with findings: Yes Inpatient Rehab Admission - Rehab Decision to Admit Inpatient rehab admission?: Yes - Initial Determination Are CD services needed?: Yes Free of communicable disease: Yes Not in need of hospitalization: Yes - Rehab Admission Criteria Previous failed treatment: Yes Poor recovery environment: Yes Comorbidities: Yes Lacks judgement: Yes Patient is meeting Inpatient Rehab admission criteria:: Yes
--- NOTE | 2018-12-05 15:46 | PN ---
BHS COWS - Scale Resting Pulse: 1= [place] 81-100 Sweatin= Chills/Flushing Restless Observation: 1= Difficult to Sit Still Pupil Size: 1= Pupils >than Normal Bone or Joint Aches: 2= Severe Diffuse Aches Runny Nose/ Eye Tearin= Runny Nose/Eyes GI Upset > 30mins: 1= Stomach Cramp Tremor Observation of Outstretched Hands: 1= Tremor [place], Not Seen Yawning Observation: 0= None Anxiety or Irritability: 2=Irritable/Anxious Goose Flesh Skin: 0=Smooth Skin COWS Score: 12 BHS Progress Note (SOAP) Subjective: Patient completed detox today and was transferred to rehab. Continues to feel withdrawal symptoms. Patient is interested in starting suboxone treatment Objective: COWS score 12 General: Some restlessness HEENT: pupils.1m Lungs clear Heart regular abd: +BS Neuro: Cn 2-12 intact, no neurological deficits noted. 12/05/18 15:44 Assessment: withdrawal from heroin 12/05/18 15:45 Plan: Because he has just completed detox, will start on 2mg once a day to relieve symptoms of withdrawal. Advised patient to talk to counselor about referral to a suboxone treatment program. Patient states [facility], which he thinks has a suboxone treatment program.
[2018-12-05] MEDS: BUPRENORPHINE/NALOXONE 2 MG/0.5 MG FILM PACKET SL SCH (16:55)
[2018-12-05] MEDS: ACETAMINOPHEN 325 MG TABLET (FP) PO PRN (16:55)
[2018-12-05] MEDS: THIAMINE HCL 100 MG TABLET (FP) PO SCH (21:53)
[2018-12-06] MEDS: IBUPROFEN 400 MG TABLET (FP) PO PRN ×2 (01:52→15:42)
[2018-12-06] MEDS ORDERED: PT OWN MED DRAWER 7, Y5N ONE (08:35)
[2018-12-06] MEDS: PRENATAL VITAMINS W/ FOLIC ACID TABLET (FP) PO SCH (09:47)
[2018-12-06] MEDS: LOSARTAN POTASSIUM 25 MG TABLET PO SCH (09:48)
[2018-12-06] MEDS: OSELTAMIVIR PHOSPHATE 75 MG CAPSULE PO SCH (09:48)
[2018-12-06] MEDS: BUPRENORPHINE/NALOXONE 2 MG/0.5 MG FILM PACKET SL SCH ×2 (09:48→17:57)
[2018-12-06] MEDS: NICOTINE 21 MG/24 HOURS TOPICAL PATCH TD SCH (09:48)
--- NOTE | 2018-12-06 12:59 | PN ---
BHS COWS - Scale Resting Pulse: 1= [place] 81-100 Sweatin= Chills/Flushing Restless Observation: 1= Difficult to Sit Still Pupil Size: 1= Pupils >than Normal Bone or Joint Aches: 0= None Runny Nose/ Eye Tearin= Nasal Congestion GI Upset > 30mins: 0= None Tremor Observation of Outstretched Hands: 1= Tremor [place], Not Seen Yawning Observation: 0= None Anxiety or Irritability: 1=Feels Anxious/Irritable Goose Flesh Skin: 0=Smooth Skin COWS Score: 7 BHS Progress Note (SOAP) Subjective: Patient seen fro withdrawal symptoms. ROS: c/o shakes, sweats, anxiety and nasal congestion Objective: 12/06/18 12:56 Vital Signs (72 hours) 12/05/18 12/06/18 12/06/18 13:06 00:30 06:46 Temperature 98.7 F 97.9 F Pulse Rate 88 67 Respiratory 18 18 18 Rate Blood Pressure 120/70 116/73 12/06/18 09:30 Temperature Pulse Rate 87 Respiratory 18 Rate Blood Pressure 125/66 PE alert and oriented x 3 skin warm, +facial moisture +perrla, eoms intact bl, pupils mildly dilated ext full rom, mild tremors felt amb ad kyaw Assessment: 12/06/18 12:59 suboxone mat opiod use disorder Plan: will adjust dose to 2mg bid starting today add flexeril 10mg prn encourage fluids continue group meetings follow up in 2-3 days
[2018-12-06] MEDS: MELATONIN 5 MG TABLETS PO PRN (21:17)
[2018-12-06] MEDS: THIAMINE HCL 100 MG TABLET (FP) PO SCH (21:17)
[2018-12-07] MEDS ORDERED: BUPRENORPHINE/NALOXONE 2 MG/0.5 MG FILM PACKET SL SCH (06:00)
[2018-12-07] MEDS: BUPRENORPHINE/NALOXONE 2 MG/0.5 MG FILM PACKET SL SCH ×2 (08:02→18:22)
[2018-12-07] MEDS: LOSARTAN POTASSIUM 25 MG TABLET PO SCH (10:22)
[2018-12-07] MEDS: PRENATAL VITAMINS W/ FOLIC ACID TABLET (FP) PO SCH (10:22)
[2018-12-07] MEDS: NICOTINE 21 MG/24 HOURS TOPICAL PATCH TD SCH (10:22)
[2018-12-07] MEDS: OSELTAMIVIR PHOSPHATE 75 MG CAPSULE PO SCH (10:22)
[2018-12-07] MEDS: ACETAMINOPHEN 325 MG TABLET (FP) PO PRN (15:04)
--- NOTE | 2018-12-07 16:47 | CONSULT ---
[facility] Psychiatric Consult - Data Date of interview: 12/07/18 Admission source: [facility] Identifying data: This is one of multiple admissions to [facility] for this 43 y/ o male, initially managed on [address] [place] [address] (detoxification) and sent to [address] for rehabilitative care to consolidate sobriety and to address psychiatric co-morbidities (substance use disorders + mood disorder). Patient is single, no dependents, homeless, unemployed and supported on SSI benefits. Substance Abuse History: Discussed in this interview. Details in current [facility] report as follows: Smoking history: Current every day smoker. Have you smoked in the past 12 months: Yes. Aproximately how many cigarettes per day: 3. Cigars Per Day: 0. Hx Chewing Tobacco Use: No. Initiated information on smoking cessation: Yes. 'Breaking Loose' booklet given: 11/30/18. - Substance & Tx. History. Hx Alcohol Use: Yes. Hx Substance Use: Yes. Substance Use Type : Alcohol, Cocaine, Heroin, Opiates, Tranquilizers. Hx Substance Use Treatment : Yes (rehab, detox, past [facility]). - Substances abused. Cocaine. Substance route: Injection. Frequency: Daily. Amount used: 10 to 12 bags. Age of first use: 19. Date of last use: 11/30/18. Heroin. Substance route: Injection. Frequency: Daily. Amount used: 10 to 12 bags. Age of first use: 21. Date of last use: 11/30/18. Benzodiazepine (Klonopin). Other (specify): Ativan, Xanax,. Substance route: Oral. Frequency: 3-6 times per week. Amount used: 1 tab of 2 mg. Age of first use: 25. Date of last use: 11/22/18. Alcohol. Substance route: Oral. Frequency: 3-6 times per week. Amount used: 4 shots of rum. Age of first use: 19. Date of last use: 11/29/18 Medical History: Anemia, hepatitis C, hypertension, and a history of orthosurgery (left knee). Patient has just returned from [facility] after medical evaluation for fever of unknown origin. Mr Douglas has been medically cleared for continuation of care at [facility]. Psychiatric History: History of multiple psychiatric hospitalizations ([facility], [facility], [facility]). Patient reports the diagnoses of MDD and Mood Disorder. He has been placed on abilify at a recent admission to [facility]. He also indicates past treatment with venlafaxine and clonazepam. Did not follow with psychiatric OPD care upon discharge. Mr Douglas denies history of suicide attempts. Physical/Sexual Abuse/Trauma History: Not discussed. Patient declines exploration of this domain. Additional Comment: Urine drug screen results: MERVIN-Cocaine, FEN-Fentanyl, MOP- Opiates, OXY-Oxycodone, MTD-Methadone. Noted. Mental Status Exam - Mental Status Exam Alert and Oriented to: Time, Place, Person Cognitive Function: Good Patient Appearance: Well Groomed Mood: Withdrawn, Hopeful Affect: Appropriate, Normal Range Patient Behavior: Fatigued, Appropriate, Cooperative Speech Pattern: Clear, Appropriate Voice Loudness: Mildly Soft/Quiet (low-toned voice) Thought Process: Intact, Goal Oriented Thought Disorder: Not Present Hallucinations: Denies Suicidal Ideation: Denies Homicidal Ideation: Denies Insight/Judgement: Fair Sleep: Fair Appetite: Good Muscle strength/Tone: Normal Gait/Station: Normal Psychiatric Findings - Problem List ([place] 1, 2,3) (1) Opioid dependence on agonist therapy Current Visit: Yes Status: Chronic Comment: Methadone 70 mg daily pending verification (2) Alcohol use disorder, mild, abuse Current Visit: Yes Status: Chronic (3) Sedative dependence Current Visit: Yes Status: Chronic (4) Cocaine dependence Current Visit: Yes Status: Chronic (5) Substance induced mood disorder Current Visit: Yes Status: Suspected (6) Mood disorder Current Visit: Yes Status: Chronic (7) Non-compliance Current Visit: Yes Status: Chronic - Initial Treatment Plan Initial Treatment Plan: Psychoeducation. Records revisited ([facility]). Support. Sleep hygiene. Harm reduction. Relapse prevention discussed with patient (MAT initiated). AA/NA meetings. Groups. Motivational counseling. Aripriprazole is held at this time, in view of current hypotensive trend. Mental status is stable. Patient is NOT a danger to self or others. Medication (abilify 10 mg/ day + effexor XR 75 mg/day + clonazepam) confirmed via survey of external pharmacy activity at [facility] (refills dated 11/20/18). Patient states that he has stopped taking klonopin and effexor " for quite a while ". Will resume aripriprazole as soon as vitals return to baseline. Patient is agreeable with this plan of care. Observation.
[2018-12-07] MEDS: MELATONIN 5 MG TABLETS PO PRN (21:13)
[2018-12-07] MEDS: THIAMINE HCL 100 MG TABLET (FP) PO SCH (21:13)
[2018-12-08] MEDS: BUPRENORPHINE/NALOXONE 2 MG/0.5 MG FILM PACKET SL SCH ×2 (05:49→18:01)
[2018-12-08] MEDS: OSELTAMIVIR PHOSPHATE 75 MG CAPSULE PO SCH (10:53)
[2018-12-08] MEDS: PRENATAL VITAMINS W/ FOLIC ACID TABLET (FP) PO SCH (10:53)
[2018-12-08] MEDS: LOSARTAN POTASSIUM 25 MG TABLET PO SCH (10:53)
[2018-12-08] MEDS: NICOTINE 21 MG/24 HOURS TOPICAL PATCH TD SCH (10:54)
[2018-12-08] MEDS: THIAMINE HCL 100 MG TABLET (FP) PO SCH (21:34)
[2018-12-08] MEDS: CYCLOBENZAPRINE HCL 10 MG TABLET (FP) PO PRN (21:34)
[2018-12-08] MEDS: IBUPROFEN 400 MG TABLET (FP) PO PRN (21:34)
[2018-12-08] MEDS: MELATONIN 5 MG TABLETS PO PRN (21:35)
[2018-12-09] MEDS: BUPRENORPHINE/NALOXONE 2 MG/0.5 MG FILM PACKET SL SCH (06:26)
[2018-12-09] MEDS: LOSARTAN POTASSIUM 25 MG TABLET PO SCH (10:11)
[2018-12-09] MEDS: OSELTAMIVIR PHOSPHATE 75 MG CAPSULE PO SCH (10:12)
[2018-12-09] MEDS: NICOTINE 21 MG/24 HOURS TOPICAL PATCH TD SCH (10:12)
[2018-12-09] MEDS: PRENATAL VITAMINS W/ FOLIC ACID TABLET (FP) PO SCH (10:12)
--- NOTE | 2018-12-09 11:02 | PN ---
BHS COWS - Scale Resting Pulse: 1= [place] 81-100 Sweatin= Chills/Flushing Restless Observation: 1= Difficult to Sit Still Pupil Size: 0= Normal to Room Light Bone or Joint Aches: 1= Mild Discomfort Runny Nose/ Eye Tearin= None GI Upset > 30mins: 0= None Tremor Observation of Outstretched Hands: 2= Slight Tremor Visible Yawning Observation: 0= None Anxiety or Irritability: 1=Feels Anxious/Irritable Goose Flesh Skin: 0=Smooth Skin COWS Score: 7 BHS Progress Note (SOAP) Subjective: Patient seen for suboxone management for opiod use disorder. Objective: 12/09/18 11:00 Vital Signs Temperature 98.0 F 12/09/18 06:59 Pulse Rate 95 H 12/09/18 09:30 Respiratory Rate 18 12/09/18 09:30 Blood Pressure 127/47 L 12/09/18 09:30 O2 Sat by Pulse Oximetry (%) PE: alert and oriented x 3 skin warm, +facial moisture-mild +perrla, eoms intact bl neck supple, no jvd ext mild tremors visible, full rom amb ad kyaw Assessment: 12/09/18 11:01 Opiod use disorder Suboxone mat Plan: will give additional 2mg sl now Increase dose to 4mg bid continue supportive measures and groups monitor clinically
[2018-12-09] MEDS ORDERED: BUPRENORPHINE/NALOXONE 2 MG/0.5 MG FILM PACKET SL ONE (11:30)
[2018-12-09] MEDS: THIAMINE HCL 100 MG TABLET (FP) PO SCH (21:06)
[2018-12-09] MEDS: MELATONIN 5 MG TABLETS PO PRN (21:06)
[2018-12-09] MEDS ORDERED: BUPRENORPHINE/NALOXONE 4 MG/1 MG FILM PACKET SL SCH (22:00)
[2018-12-10] MEDS: BUPRENORPHINE/NALOXONE 4 MG/1 MG FILM PACKET SL SCH ×2 (10:11→21:49)
[2018-12-10] MEDS: PRENATAL VITAMINS W/ FOLIC ACID TABLET (FP) PO SCH (10:11)
[2018-12-10] MEDS: NICOTINE 21 MG/24 HOURS TOPICAL PATCH TD SCH (10:11)
[2018-12-10] MEDS: OSELTAMIVIR PHOSPHATE 75 MG CAPSULE PO SCH (10:12)
[2018-12-10] MEDS: LOSARTAN POTASSIUM 25 MG TABLET PO SCH (10:13)
[2018-12-10] MEDS: THIAMINE HCL 100 MG TABLET (FP) PO SCH (21:48)
[2018-12-10] MEDS: MELATONIN 5 MG TABLETS PO PRN (21:49)
[2018-12-11] MEDS ORDERED: PT OWN MED DRAWER 7, Y5N ONE (08:43)
[2018-12-11] MEDS: PRENATAL VITAMINS W/ FOLIC ACID TABLET (FP) PO SCH (10:05)
[2018-12-11] MEDS: LOSARTAN POTASSIUM 25 MG TABLET PO SCH (10:05)
[2018-12-11] MEDS: NICOTINE 21 MG/24 HOURS TOPICAL PATCH TD SCH (10:06)
[2018-12-11] MEDS: BUPRENORPHINE/NALOXONE 4 MG/1 MG FILM PACKET SL SCH ×2 (10:06→21:47)
[2018-12-11] MEDS: THIAMINE HCL 100 MG TABLET (FP) PO SCH (21:46)
[2018-12-11] MEDS: IBUPROFEN 400 MG TABLET (FP) PO PRN (21:47)
[2018-12-11] MEDS: MELATONIN 5 MG TABLETS PO PRN (21:48)
[2018-12-12] MEDS: LOSARTAN POTASSIUM 25 MG TABLET PO SCH (10:23)
[2018-12-12] MEDS: NICOTINE 21 MG/24 HOURS TOPICAL PATCH TD SCH (10:23)
[2018-12-12] MEDS: PRENATAL VITAMINS W/ FOLIC ACID TABLET (FP) PO SCH (10:23)
[2018-12-12] MEDS: IBUPROFEN 400 MG TABLET (FP) PO PRN ×2 (10:26→21:10)
[2018-12-12] MEDS ORDERED: PT OWN MED DRAWER 7, Y5N ONE (11:50)
[2018-12-12] MEDS ORDERED: BUPRENORPHINE/NALOXONE 4 MG/1 MG FILM PACKET SL ONE ×2 (12:30→22:15)
[2018-12-12] MEDS: THIAMINE HCL 100 MG TABLET (FP) PO SCH (21:10)
[2018-12-12] MEDS: CYCLOBENZAPRINE HCL 10 MG TABLET (FP) PO PRN (21:10)
[2018-12-12] MEDS: MELATONIN 5 MG TABLETS PO PRN (21:10)
[2018-12-13] MEDS: BUPRENORPHINE/NALOXONE 4 MG/1 MG FILM PACKET SL SCH ×2 (06:41→21:42)
[2018-12-13] MEDS: LOSARTAN POTASSIUM 25 MG TABLET PO SCH (09:47)
[2018-12-13] MEDS: NICOTINE 21 MG/24 HOURS TOPICAL PATCH TD SCH (09:47)
[2018-12-13] MEDS: PRENATAL VITAMINS W/ FOLIC ACID TABLET (FP) PO SCH (09:47)
[2018-12-13] MEDS: P-EPHED 60MG/TRIPROLIDI 2.5MG TABLET PO PRN (18:00)
[2018-12-13] MEDS: THIAMINE HCL 100 MG TABLET (FP) PO SCH (21:41)
[2018-12-14] MEDS: BUPRENORPHINE/NALOXONE 4 MG/1 MG FILM PACKET SL SCH ×2 (06:40→21:06)
[2018-12-14] MEDS: P-EPHED 60MG/TRIPROLIDI 2.5MG TABLET PO PRN (06:59)
[2018-12-14] MEDS: LOSARTAN POTASSIUM 25 MG TABLET PO SCH (10:02)
[2018-12-14] MEDS: PRENATAL VITAMINS W/ FOLIC ACID TABLET (FP) PO SCH (10:02)
[2018-12-14] MEDS: guaiFENesin 200 MG/10 ML 10 ML UNIT-DOSE CUPS PO PRN (10:03)
[2018-12-14] MEDS: NICOTINE 21 MG/24 HOURS TOPICAL PATCH TD SCH (10:03)
[2018-12-14] MEDS: THIAMINE HCL 100 MG TABLET (FP) PO SCH (21:04)
[2018-12-15] MEDS: BUPRENORPHINE/NALOXONE 4 MG/1 MG FILM PACKET SL SCH ×2 (06:28→21:42)
[2018-12-15] MEDS: LOSARTAN POTASSIUM 25 MG TABLET PO SCH (09:19)
[2018-12-15] MEDS: PRENATAL VITAMINS W/ FOLIC ACID TABLET (FP) PO SCH (09:19)
[2018-12-15] MEDS: NICOTINE 21 MG/24 HOURS TOPICAL PATCH TD SCH (09:19)
[2018-12-15] MEDS: THIAMINE HCL 100 MG TABLET (FP) PO SCH (21:42)
[2018-12-16] MEDS: BUPRENORPHINE/NALOXONE 4 MG/1 MG FILM PACKET SL SCH (06:27)
[2018-12-16] MEDS: guaiFENesin 200 MG/10 ML 10 ML UNIT-DOSE CUPS PO PRN (06:28)
[2018-12-16] MEDS: P-EPHED 60MG/TRIPROLIDI 2.5MG TABLET PO PRN (06:28)
[2018-12-16] MEDS: ACETAMINOPHEN 325 MG TABLET (FP) PO PRN (06:28)
[2018-12-16] MEDS: LOSARTAN POTASSIUM 25 MG TABLET PO SCH (10:10)
[2018-12-16] MEDS: NICOTINE 21 MG/24 HOURS TOPICAL PATCH TD SCH (10:10)
[2018-12-16] MEDS: PRENATAL VITAMINS W/ FOLIC ACID TABLET (FP) PO SCH (10:10)
--- NOTE | 2018-12-16 10:30 | PN ---
BHS COWS - Scale Resting Pulse: 1= [place] 81-100 Sweatin= Chills/Flushing Restless Observation: 1= Difficult to Sit Still Pupil Size: 0= Normal to Room Light Bone or Joint Aches: 1= Mild Discomfort Runny Nose/ Eye Tearin= None GI Upset > 30mins: 0= None Tremor Observation of Outstretched Hands: 0= None Yawning Observation: 1= 1-2x During Session Anxiety or Irritability: 2=Irritable/Anxious Goose Flesh Skin: 0=Smooth Skin COWS Score: 7 BHS Progress Note (SOAP) Subjective: PATIENT SEEN FOR LOW GRADE TEMPERATURE, MILD BODY ACHES, DRY COUGH AND CHILLS. Objective: 12/16/18 10:27 Vital Signs Period Temp Pulse Resp BP Sys/Peterson Pulse Ox Last 24 Hr 99.5 F-100.3 F 96 18-18 116/45 PE ALERT AND ORIENTED X 3 SKIN WARM, +FACIAL MOISTURE +PERRLA,EOMS INTACT BL CAR S1S2 RESP CTA BL, NO RALES, RHONCHI, WHEEZES EXT FULL ROM, AMB AD TANYA Assessment: 12/16/18 10:28 OPIOD DEPENDENCE LOW GRADE FEVER ? PROTRACTED WITHDRAWAL VS URI SUBOXONE MAT Plan: CHECK CBC SUBOXONE INCREASED TO 12MG SL DAILY START AMOXICILLIN 500MG TID X 7 DAYS ENCOURAGED FLUIDS APAP/IBU FOR FEVER MONITOR CLINICALLY
[2018-12-16] MEDS ORDERED: BUPRENORPHINE HCL/NALOXONE 12 MG-3 MG SL FILM PACKET SL SCH (12:05)
[2018-12-16] MEDS: AMOXICILLIN 500 MG CAPSULE (FP) PO SCH ×2 (13:08→21:12)
[2018-12-16] MEDS ORDERED: BUPRENORPHINE/NALOXONE 8 MG/2 MG FILM PACKET SL ONE (14:00)
[2018-12-16] MEDS: THIAMINE HCL 100 MG TABLET (FP) PO SCH (21:12)
[2018-12-17] MEDS: ACETAMINOPHEN 325 MG TABLET (FP) PO PRN (07:17)
[2018-12-17] MEDS: AMOXICILLIN 500 MG CAPSULE (FP) PO SCH ×3 (07:17→21:42)
[2018-12-17] MEDS: PRENATAL VITAMINS W/ FOLIC ACID TABLET (FP) PO SCH (10:08)
[2018-12-17] MEDS: BUPRENORPHINE HCL/NALOXONE 12 MG-3 MG SL FILM PACKET SL SCH (10:08)
[2018-12-17] MEDS: LOSARTAN POTASSIUM 25 MG TABLET PO SCH (10:09)
[2018-12-17] MEDS: NICOTINE 21 MG/24 HOURS TOPICAL PATCH TD SCH (10:09)
[2018-12-17 12:45] LABS: BASO % 0.4 % (0-2.0); EOS % 0.4 % (0-4.5); HEMATOCRIT 30.6 % (35.4-49); HEMOGLOBIN 10.4 GM/dL (11.7-16.9); LYMPH % 14.4 % (8-40); MCH 32.6 pg (25.7-33.7); MCHC 33.8 g/dl (32.0-35.9); MEAN CELL VOLUME 96.2 fl (80-96); MEAN PLT VOLUME 10.6 fl (7.5-11.1); MONO % 9.6 % (3.8-10.2); NEUT % 75.2 % (42.8-82.8); PLATELET COUNT 92 K/MM3 (134-434); RBC 3.18 M/mm3 (4.00-5.60); RDW 15.1 % (11.9-15.9); WHITE BLOOD COUNT 10.8 K/mm3 (4.0-10.0)
[2018-12-17] MEDS: THIAMINE HCL 100 MG TABLET (FP) PO SCH (21:42)
[2018-12-18] MEDS: AMOXICILLIN 500 MG CAPSULE (FP) PO SCH ×3 (06:26→21:06)
[2018-12-18] MEDS: IBUPROFEN 400 MG TABLET (FP) PO PRN (07:44)
[2018-12-18] MEDS: BUPRENORPHINE HCL/NALOXONE 12 MG-3 MG SL FILM PACKET SL SCH (09:56)
[2018-12-18] MEDS: PRENATAL VITAMINS W/ FOLIC ACID TABLET (FP) PO SCH (09:56)
[2018-12-18] MEDS: NICOTINE 21 MG/24 HOURS TOPICAL PATCH TD SCH (09:57)
[2018-12-18] MEDS: LOSARTAN POTASSIUM 25 MG TABLET PO SCH (09:57)
--- NOTE | 2018-12-18 11:29 | PN ---
BHS Progress Note (SOAP) Subjective: Patient is supposed to be discharged tomorrow. However, he has been having a low grade temperature and reports cough w/ yellow sputum. Was started on amoxicillin. And is not c/o swelling in the legs. Objective: P/E: General: no apparent distress Lungs: clear Heart: s1 s2 audible Abd: +BS, non tender, non-distended Extremities: 2+ pitting edema bilaterally to mid calf. 12/18/18 11:27 CBC, BMP 12/17/18 08:20 12/18/18 11:27 Vital Signs (72 hours) 12/16/18 12/16/18 12/16/18 00:30 03:30 06:00 Temperature 100.3 F H Pulse Rate 96 H Respiratory 18 18 18 Rate Blood Pressure 116/45 L 12/16/18 12/16/18 12/17/18 07:30 10:00 00:30 Temperature 99.5 F Pulse Rate 81 Respiratory 18 Rate Blood Pressure 108/5 L 12/17/18 12/17/18 12/17/18 03:30 07:12 09:08 Temperature 99.1 F 98.2 F Pulse Rate 92 H 82 Respiratory 18 18 18 Rate Blood Pressure 101/44 L 100/39 L 12/17/18 12/18/18 12/18/18 10:00 00:30 03:30 Temperature 98.2 F Pulse Rate 82 Respiratory 18 18 18 Rate Blood Pressure 100/39 L 12/18/18 12/18/18 06:43 09:30 Temperature 99.9 F H Pulse Rate 92 H 52 L Respiratory 18 18 Rate Blood Pressure 118/48 L 112/62 12/18/18 11:34 Assessment: EL AGUILAR Edema 12/18/18 11:35 Plan: URI-continue abx; order CXR Edema: HCTZ 12.5 ordered, apply compression stockings, elevate end of bed and elevate legs during meetings. Walking prn. Patient cannot be discharged at this time.
[2018-12-18] MEDS: HYDROCHLOROTHIAZIDE 12.5 MG CAPSULE (FP) PO SCH (12:15)
[2018-12-18] MEDS: THIAMINE HCL 100 MG TABLET (FP) PO SCH (21:06)
[2018-12-19] MEDS: AMOXICILLIN 500 MG CAPSULE (FP) PO SCH ×3 (06:14→21:27)
[2018-12-19] MEDS: HYDROCHLOROTHIAZIDE 12.5 MG CAPSULE (FP) PO SCH (09:45)
[2018-12-19] MEDS: PRENATAL VITAMINS W/ FOLIC ACID TABLET (FP) PO SCH (09:45)
[2018-12-19] MEDS: LOSARTAN POTASSIUM 25 MG TABLET PO SCH (09:45)
[2018-12-19] MEDS: BUPRENORPHINE HCL/NALOXONE 12 MG-3 MG SL FILM PACKET SL SCH (09:46)
[2018-12-19] MEDS: NICOTINE 21 MG/24 HOURS TOPICAL PATCH TD SCH (09:46)
--- NOTE | 2018-12-19 09:48 | PN ---
BHS Progress Note (SOAP) Subjective: Follow up from yesterday. Pt continues on amoxicillin for URI. States that his ankles are still swollen. Objective: CXR: clear, no signs of infection 12/19/18 09:44 Vital Signs (72 hours) 12/16/18 12/17/18 12/17/18 10:00 00:30 03:30 Temperature Pulse Rate 81 Respiratory 18 18 Rate Blood Pressure 108/56 L 12/17/18 12/17/18 12/17/18 07:12 09:08 10:00 Temperature 99.1 F 98.2 F 98.2 F Pulse Rate 92 H 82 82 Respiratory 18 18 18 Rate Blood Pressure 101/44 L 100/39 L 100/39 L 12/18/18 12/18/18 12/18/18 00:30 03:30 06:43 Temperature 99.9 F H Pulse Rate 92 H Respiratory 18 18 18 Rate Blood Pressure 118/48 L 12/18/18 12/19/18 12/19/18 09:30 00:30 03:30 Temperature Pulse Rate 52 L Respiratory 18 18 18 Rate Blood Pressure 112/62 12/19/18 06:49 Temperature 98.8 F Pulse Rate 91 H Respiratory 16 Rate Blood Pressure 125/55 L 12/19/18 09:44 PE: General: no apparent distress, afebrile Throat: clear Lungs: clear Heart: s1 s2 audible Abd: +BS Extremities: 2+ pitting edema, put decreased compared to yesterday 12/19/18 09:47 Assessment: URI Edema 12/19/18 09:46 Plan: Continue amoxicillin, continue with compression stockings, leg elevation. HCTZ held today for BP of 103/48.
[2018-12-19] MEDS: THIAMINE HCL 100 MG TABLET (FP) PO SCH (21:27)
[2018-12-20] MEDS: AMOXICILLIN 500 MG CAPSULE (FP) PO SCH ×3 (06:17→21:07)
[2018-12-20] MEDS: ACETAMINOPHEN 325 MG TABLET (FP) PO PRN (06:17)
[2018-12-20] MEDS: PRENATAL VITAMINS W/ FOLIC ACID TABLET (FP) PO SCH (09:44)
[2018-12-20] MEDS: NICOTINE 21 MG/24 HOURS TOPICAL PATCH TD SCH (09:44)
[2018-12-20] MEDS: BUPRENORPHINE HCL/NALOXONE 12 MG-3 MG SL FILM PACKET SL SCH (09:44)
[2018-12-20] MEDS: HYDROCHLOROTHIAZIDE 12.5 MG CAPSULE (FP) PO SCH (09:45)
[2018-12-20] MEDS: LOSARTAN POTASSIUM 25 MG TABLET PO SCH (09:45)
[2018-12-20] MEDS: THIAMINE HCL 100 MG TABLET (FP) PO SCH (21:07)
[2018-12-21] MEDS: AMOXICILLIN 500 MG CAPSULE (FP) PO SCH ×3 (06:17→21:43)
[2018-12-21] MEDS: HYDROCHLOROTHIAZIDE 12.5 MG CAPSULE (FP) PO SCH (10:09)
[2018-12-21] MEDS: BUPRENORPHINE HCL/NALOXONE 12 MG-3 MG SL FILM PACKET SL SCH (10:09)
[2018-12-21] MEDS: PRENATAL VITAMINS W/ FOLIC ACID TABLET (FP) PO SCH (10:09)
[2018-12-21] MEDS: NICOTINE 21 MG/24 HOURS TOPICAL PATCH TD SCH (10:10)
[2018-12-21] MEDS: LOSARTAN POTASSIUM 25 MG TABLET PO SCH (10:10)
[2018-12-21] MEDS: THIAMINE HCL 100 MG TABLET (FP) PO SCH (21:43)
[2018-12-22] MEDS: AMOXICILLIN 500 MG CAPSULE (FP) PO SCH ×3 (06:04→21:15)
[2018-12-22] MEDS: PRENATAL VITAMINS W/ FOLIC ACID TABLET (FP) PO SCH (10:32)
[2018-12-22] MEDS: HYDROCHLOROTHIAZIDE 12.5 MG CAPSULE (FP) PO SCH ×2 (10:32→10:38)
[2018-12-22] MEDS: BUPRENORPHINE HCL/NALOXONE 12 MG-3 MG SL FILM PACKET SL SCH (10:32)
[2018-12-22] MEDS: LOSARTAN POTASSIUM 25 MG TABLET PO SCH (10:33)
[2018-12-22] MEDS: NICOTINE 21 MG/24 HOURS TOPICAL PATCH TD SCH (10:33)
[2018-12-22] MEDS: THIAMINE HCL 100 MG TABLET (FP) PO SCH (21:15)
[2018-12-23] MEDS: AMOXICILLIN 500 MG CAPSULE (FP) PO SCH (06:22)
[2018-12-23] MEDS: HYDROCHLOROTHIAZIDE 12.5 MG CAPSULE (FP) PO SCH (09:49)
[2018-12-23] MEDS: NICOTINE 21 MG/24 HOURS TOPICAL PATCH TD SCH (09:49)
[2018-12-23] MEDS: PRENATAL VITAMINS W/ FOLIC ACID TABLET (FP) PO SCH (09:49)
[2018-12-23] MEDS: BUPRENORPHINE HCL/NALOXONE 12 MG-3 MG SL FILM PACKET SL SCH (09:49)
[2018-12-23] MEDS: LOSARTAN POTASSIUM 25 MG TABLET PO SCH (09:49)
[2018-12-23] MEDS: MELATONIN 5 MG TABLETS PO PRN (21:39)
[2018-12-23] MEDS: THIAMINE HCL 100 MG TABLET (FP) PO SCH (21:39)
[2018-12-24 06:51] VITALS: BP 113/40; PULSE 80; TEMP 98
[2018-12-24] MEDS: NICOTINE 21 MG/24 HOURS TOPICAL PATCH TD SCH (09:02)
[2018-12-24] MEDS: HYDROCHLOROTHIAZIDE 12.5 MG CAPSULE (FP) PO SCH (09:02)
[2018-12-24] MEDS: LOSARTAN POTASSIUM 25 MG TABLET PO SCH (09:02)
[2018-12-24] MEDS: PRENATAL VITAMINS W/ FOLIC ACID TABLET (FP) PO SCH (09:02)
[2018-12-24] MEDS ORDERED: BUPRENORPHINE HCL/NALOXONE 12 MG-3 MG SL FILM PACKET SL SCH (10:00)
== END 2018-12-24 09:18 | disposition home or self-care (01) | DRG 772 ==
LOC: YASAS 13:04 → Y3W 13:06
PROVIDERS: ADMIT Neuromusculoskeletal Medicine & OMM; ATTEND Neuromusculoskeletal Medicine & OMM
PROC: HZ42ZZZ Group Counseling for Substance Abuse Treatment, Cognitive-Behavioral (ICD-10-PCS; principal; 2018-12-05)
DX: F11.20 Opioid dependence, uncomplicated (principal); F13.20 Sedative, hypnotic or anxiolytic dependence, uncomplicated; F14.20 Cocaine dependence, uncomplicated; F10.10 Alcohol abuse, uncomplicated; F17.210 Nicotine dependence, cigarettes, uncomplicated; F39 Unspecified mood [affective] disorder; F19.24 Other psychoactive substance dependence with psychoactive substance-induced mood disorder; I10 Essential (primary) hypertension; D64.9 Anemia, unspecified; J06.9 Acute upper respiratory infection, unspecified; R60.0 Localized edema; B18.2 Chronic viral hepatitis C; Z91.19 Patient's noncompliance with other medical treatment and regimen
CPT/HCPCS: 36415; 71046-TC-FY; 85025

== ENCOUNTER 2019-04-17 18:40 | Inpatient (IN) | payer OTHER ==
[2019-04-17 21:33] VITALS: BMI 22.9
--- NOTE | 2019-04-18 05:10 | PN ---
BHS COWS - Scale Resting Pulse: 1= [place] 81-100 Sweatin=Flushed/Facial Moisture Restless Observation: 0= Sits Still Pupil Size: 1= Pupils >than Normal Bone or Joint Aches: 4=Acute Joint/Muscle Pain Runny Nose/ Eye Tearin= Runny Nose/Eyes GI Upset > 30mins: 2= Nausea/Diarrhea (duarrhea x 2) Tremor Observation of Outstretched Hands: 4= Gross Tremor/Twitching Yawning Observation: 1= 1-2x During Session Anxiety or Irritability: 2=Irritable/Anxious Goose Flesh Skin: 0=Smooth Skin COWS Score: 19 BHS Progress Note (SOAP) Subjective: Opioid dependence in withdrawal Hep. C Hypertension nicotine dependence anxiety depression Objective: 04/18/19 05:14 Restless Joint pain and aches Tremors anxiety Vital Signs Temperature 97.9 F 04/17/19 21:21 Pulse Rate 82 04/17/19 21:21 Respiratory Rate 16 04/17/19 21:21 Blood Pressure 108/64 04/17/19 21:21 O2 Sat by Pulse Oximetry (%) Assessment: 04/18/19 05:16 Heroin withdrawal symptoms Plan: Admit to detox Methadone regimen H and P including medication confirmation to bee done in AM by floor MD/[employer] See admission ordered
[2019-04-18] MEDS ORDERED: METHADONE HCL 10 MG TABLET (FOR DETOX USE ONLY) PO ONE ×2 (05:22→11:30)
[2019-04-18] MEDS ORDERED: MELATONIN 5 MG TABLETS PO PRN (05:22)
[2019-04-18] MEDS ORDERED: cloNIDine HCL 0.1 MG TABLET PO PRN (05:22)
[2019-04-18] MEDS ORDERED: BISMUTH SUBSALICYLATE 524 MG/30 ML UD PO PRN (05:22)
[2019-04-18] MEDS ORDERED: ACETAMINOPHEN 325 MG TABLET (FP) PO PRN ×2 (05:22)
[2019-04-18] MEDS ORDERED: MAG HYDROX/AL HYDROX/SIMETH 30 ML UNIT-DOSE CUP PO PRN (05:22)
[2019-04-18] MEDS ORDERED: MAGNESIUM CITRATE 300 ML BOTTLE PO PRN (05:22)
[2019-04-18] MEDS ORDERED: MENTHOL/PHENOL 1 EACH UD MM PRN (05:22)
[2019-04-18] MEDS ORDERED: MAGNESIUM HYDROX 2400MG/30ML ORAL SUSPENSION 30 ML CUP PO PRN (05:22)
[2019-04-18] MEDS ORDERED: NICOTINE POLACRILEX 2 MG GUM BUC PRN (05:22)
[2019-04-18] MEDS: METHOCARBAMOL 500 MG TABLET PO PRN (07:01)
[2019-04-18] MEDS: PRENATAL VITAMINS W/ FOLIC ACID TABLET (FP) PO SCH (10:23)
[2019-04-18] MEDS: HYDROCHLOROTHIAZIDE 12.5 MG CAPSULE (FP) PO SCH (10:23)
[2019-04-18] MEDS: NICOTINE 14 MG/24 HOURS TOPICAL PATCH TD SCH (10:23)
--- NOTE | 2019-04-18 10:46 | HP ---
COWS - Scale Resting Pulse: 0= [place] 80 or Below Sweatin=Flushed/Facial Moisture Restless Observation: 1= Difficult to Sit Still Pupil Size: 0= Normal to Room Light Bone or Joint Aches: 2= Severe Diffuse Aches Runny Nose/ Eye Tearin= Nasal Congestion GI Upset > 30mins: 2= Nausea/Diarrhea Tremor Observation: 2= Slight Tremor Visible Yawning Observation: 2= >3x During Session Anxiety or Irritability: 2=Irritable/Anxious Goose Flesh Skin: 3=Piloerection COWS Score: 17 CIWA Score - Admission Criteria OASAS Guidelines: Admission for Medically Managed Detox: Requires at least one of the followin. CIWA greater than 12 2. Seizures within the past 24 hours 3. Delirium tremens within the past 24 hours 4. Hallucinations within the past 24 hours 5. Acute intervention needed for co occurring medical disorder 6. Acute intervention needed for co occurring psychiatric disorder 7. Severe withdrawal that cannot be handled at a lower level of care (continued vomiting, continued diarrhea, abnormal vital signs) requiring intravenous medication and/or fluids 8. Admitting History and Physical - Primary Care Physician PCP: Dr. Paige ([place], [place]) - Admission Chief Complaint: I am here to detox. History of Present Illness: Pt is a 44yrold male with a history of heroin dependence seeking detox for treatment. pt also had open heart surgery for valve replacement 01/2019 at [facility] in [facility]. Dx: Endocarditis History Source: Patient Limitations to Obtaining History: No Limitations - Past Medical History Cardiovascular: Yes: Other (cardiac surgery 01/2019 dx: endocarditis) Hepatobiliary: Yes: Hepatitis C (no treatment) Psych: Yes: Anxiety, Depression - Past Surgical History Past Surgical History: Yes: Valve Replacement (01/2019) - Smoking History Smoking history: Current every day smoker Have you smoked in the past 12 months: Yes Aproximately how many cigarettes per day: 2 - Alcohol/Substance Use Hx Alcohol Use: Yes History of Substance Use: reports: Heroin Date of Last Use: 04/17/19 - Social History Usual Living Arrangement: Yes: Alone Do you think of yourself as: Straight/Heterosexual ADL: Independent History of Recent Travel: No Admission ROS BHS - HPI Chief Complaint: I need detox Allergies/Adverse Reactions: Allergies Allergy/AdvReac Type Severity Reaction Status Date / Time Fish Containing Products Allergy Severe Hives Verified 04/17/19 21:22 shellfish derived Allergy Unknown Difficulty Verified 04/17/19 21:22 Breathing No Known Drug Allergies Allergy Verified 04/17/19 21:22 SEAFOOD Allergy Unknown Difficulty Uncoded 04/17/19 21:22 Breathing History of Present Illness: Pt is a 44yrold male with a history of heroin dependence seeking detox for treatment. pt also had open heart surgery for valve replacement 01/2019 at [facility] in [facility]. Dx: Endocarditis Exam Limitations: No Limitations - Ebola screening Have you traveled outside of the country in the last 21 days: No (n) Have you had contact with anyone from an Ebola affected area: No Do you have a fever: No - Review of Systems Constitutional: Diaphoresis, Night Sweats, Changes in sleep, Unexplained wgt Loss EENT: reports: No Symptoms Reported Respiratory: reports: No Symptoms reported Cardiac: reports: Lightheadedness GI: reports: Poor Appetite, Poor Fluid Intake, Abdominal cramping : reports: No Symptoms Reported Musculoskeletal: reports: Back Pain Integumentary: reports: Lesions (large size lesion to left lower leg conrad to surrounding tissues) Neuro: reports: Headache, Tingling, Tremors Endocrine: reports: Flushing, Intolerance to Cold, Intolerance to Heat Hematology: reports: No Symptoms Reported, Anemia Psychiatric: reports: Judgement Intact, Mood/Affect Appropiate, Orientated x3, Agitated, Anxious Other Systems: Reviewed and Negative Patient History - Patient Medical History Hx Anemia: Yes (not on iron supplement) Hx Asthma: No Hx Chronic Obstructive Pulmonary Disease (COPD): No Hx Cancer: No Hx Cardiac Disorders: No Hx Congestive Heart Failure: No Hx Hypertension: Yes Hx Hypercholesterolemia: No Hx Pacemaker: No HX Cerebrovascular Accident: No Hx Seizures: No Hx Dementia: No Hx Diabetes: No Hx Gastrointestinal Disorders: No Hx Liver Disease: No Hx Genitourinary Disorders: No Hx Sexually Transmitted Disorders: No Hx Renal Disease (ESRD): No Hx Thyroid Disease: No Hx Human Immunodeficiency Virus (HIV): No (negative 2018) Hx Hepatitis C: Yes Hx Depression: Yes Hx Suicide Attempt: No (pt denies) Hx Bipolar Disorder: No Hx Schizophrenia: No - Patient Surgical History Past Surgical History: Yes Hx Neurologic Surgery: No Hx Cataract Extraction: No Hx Cardiac Surgery: Yes (valve replacement 01/2019) Hx Lung Surgery: No Hx Breast Surgery: No Hx Breast Biopsy: No Hx Abdominal Surgery: No Hx Appendectomy: No Hx Cholecystectomy: No Hx Genitourinary Surgery: No Hx Section: No Hx Orthopedic Surgery: Yes (left knee sx 2007) Anesthesia Reaction: No - PPD History Previous Implant?: Yes Documented Results: Negative w/proof Implanted On Prior [facility] Admission?: Yes Date: 05/02/18 Results: 0 mm. PPD to be Administered?: No - Reproductive History Patient is a Female of Child Bearing Age (11 -55 yrs old): No - Smoking Cessation Smoking history: Current every day smoker Have you smoked in the past 12 months: No Aproximately how many cigarettes per day: 2 Cigars Per Day: 0 Hx Chewing Tobacco Use: No Initiated information on smoking cessation: Yes 'Breaking Loose' booklet given: 04/18/19 - Substance & Tx. History Hx Alcohol Use: No Hx Substance Use: Yes Substance Use Type: Cocaine, Heroin Hx Substance Use Treatment: Yes (last detox 12/2018 [facility]) - Substances abused Heroin Substance route: Injection Frequency: Daily Amount used: 4 to 6 bags Age of first use: 21 Date of last use: 04/17/19 Cocaine Substance route: Injection Frequency: Daily Amount used: 4 to 6 bags Age of first use: 21 Date of last use: 04/17/19 Admission Physical Exam BHS - Vital Signs Vital Signs: Vital Signs - 24 hr 04/17/19 04/18/19 04/18/19 21:21 09:58 10:00 Temperature 97.9 F 98.1 F 98.1 F Pulse Rate 82 76 76 Respiratory 16 18 18 Rate Blood Pressure 108/64 139/74 139/74 - Physical General Appearance: Yes: Appropriately Dressed, Moderate Distress, Thin, Tremorous, Irritable, Sweating, Anxious HEENTM: Yes: Normal Voice Respiratory: Yes: Lungs Clear, Normal Breath Sounds, No Respiratory Distress Neck: Yes: No masses,lesions,Nodules Breast: Yes: Within Normal Limits Cardiology: Yes: Regular Rhythm, Regular Rate, Surgical Scar (midline scar noted clean no s/s of infection to skin) Abdominal: Yes: Within Normal Limits Genitourinary: Yes: Within Normal Limits Back: Yes: Normal Inspection Musculoskeletal: Yes: Within Normal Limits Extremities: Yes: Normal Capillary Refill, Normal Inspection, Tremors, Swelling (to lower left foot) Neurological: Yes: Fully Oriented, Alert, Normal Response Integumentary: Yes: Normal Color, Track Blake Lymphatic: Yes: Within Normal Limits - Addiitonal Findings: left lower leg lesion noted with serious sanguanious and yellowish exudate noted , skin in surrounding area conrad on fire, warm to touch. pt will require topical and oral ABX. wound care will be ordered. - Diagnostic (1) Opioid dependence Current Visit: Yes Status: Chronic (2) Cocaine dependence Current Visit: Yes Status: Chronic (3) Hepatitis C Current Visit: No Status: Chronic Qualifiers: Viral hepatitis chronicity: chronic Hepatic coma status: without hepatic coma Qualified Code(s): B18.2 - Chronic viral hepatitis C (4) Hypertension Current Visit: Yes Status: Chronic Qualifiers: Hypertension type: essential hypertension Qualified Code(s): I10 - Essential (primary) hypertension (5) IVDU (intravenous drug user) Current Visit: Yes Status: Chronic (6) Nicotine dependence, uncomplicated Current Visit: No Status: Chronic Qualifiers: Nicotine product type: cigarettes Qualified Code(s): F17.210 - Nicotine dependence, cigarettes, uncomplicated (7) Opioid dependence with withdrawal Current Visit: Yes Status: Chronic (8) Substance induced mood disorder Current Visit: No Status: Suspected (9) Ulcer of ankle Current Visit: Yes Status: Acute Qualifiers: Laterality: left Non-pressure ulcer stage: unspecified non-pressure ulcer stage Qualified Code(s): L97.329 - Non-pressure chronic ulcer of left ankle with unspecified severity Comment: serous sanguanous with yellow exudate noted. (10) Blister of toe of left foot Current Visit: Yes Status: Acute Qualifiers: Encounter type: initial encounter Qualified Code(s): S90.425A - Blister ( nonthermal), left lesser toe(s), initial encounter Cleared for Admission [facility] - Detox or Rehab [facility] Level of Care: Medically Managed Detox Regimen/Protocol: Methadone Claeared for Rehab Admission: No Breathalyzer - Breathalyzer Breathalyzer: 0 Urine Drug Screen - Test Device Lot number: [id number] Expiration date: 10/23/20 - Control Is test valid?: Yes - Results Drug screen NEGATIVE: No Urine drug screen results: THC-Marijuana, MERVIN-Cocaine, FEN-Fentanyl, MOP-Opiates , MTD-Methadone, BUP-Suboxone Inpatient Rehab Admission - Rehab Decision to Admit Inpatient rehab admission?: No
[2019-04-18] MEDS ORDERED: CEPHALEXIN MONOHYDRATE 250 MG CAPSULE (FP) PO SCH (12:00)
[2019-04-18] MEDS: SILVER SULFADIAZINE 1% TOP CREAM 50 GM JAR TP SCH ×2 (12:14→22:12)
[2019-04-18] MEDS: LOSARTAN POTASSIUM 25 MG TABLET PO SCH (12:14)
--- NOTE | 2019-04-18 12:40 | PN ---
Theo Progress Note Note: pt denies of any SOB, no chest pain, however d/t his recent 2month old valve replacement and an angry wound to lower left lateral leg, pt is at risk of infection, pt will be sent to [facility] for evaluation, report given to Dr. Guaman (resident).
--- NOTE | 2019-04-18 13:40 | EKG ---
Test Reason : Blood Pressure : / mmHG Vent. Rate : 073 BPM Atrial Rate : 073 BPM P-R Int : 126 ms QRS Dur : 098 ms QT Int : 426 ms P-R-T Axes : 069 076 -62 degrees QTc Int : 469 ms NORMAL SINUS RHYTHM MINIMAL VOLTAGE CRITERIA FOR LVH, MAY BE NORMAL VARIANT NONSPECIFIC ST AND T WAVE ABNORMALITY PROLONGED QT ABNORMAL ECG Confirmed by TEAGAN CARRASCO MD ([id number]) on 04/18/2019 1:40:33 PM Referred By: Scott Mullins Confirmed By:TEAGAN CARRASCO MD
[2019-04-18 14:29] LABS: HEMATOCRIT 26.8 % (35.4-49); HEMOGLOBIN 9.1 GM/dL (11.7-16.9); MCH 29.7 pg (25.7-33.7); MCHC 34.1 g/dl (32.0-35.9); MEAN CELL VOLUME 87.1 fl (80-96); MEAN PLT VOLUME 8.5 fl (7.5-11.1); PLATELET COUNT 134 K/MM3 (134-434); RBC 3.08 M/mm3 (4.00-5.60); RDW 15.5 % (11.9-15.9)
[2019-04-18 15:58] LABS: ALBUMIN 3.4 g/dl (3.4-5.0); BILIRUBIN,TOTAL 0.7 mg/dL (0.2-1); BLOOD UREA NITROGEN 14.8 mg/dL (7-18); CALCIUM 8.2 mg/dL (8.5-10.1); CREATININE 0.9 mg/dL (0.55-1.3); POTASSIUM 3.2 mmol/L (3.5-5.1); TOT PROT 7.9 g/dl (6.4-8.2)
--- NOTE | 2019-04-18 18:01 | PN ---
[facility] Progress Note Note: pt returned from the hospital , states he is feeling better, has hospital d/c instructions for dx cellulitis , rx for Clindamycin 600 mg q 6 hrs x 7 days no wound care instructions provided . Laboratory Results - last 24 hr 04/18/19 04/18/19 04/18/19 12:25 12:25 12:25 WBC 4.0 RBC 3.08 L Hgb 9.1 L Hct 26.8 L MCV 87.1 MCH 29.7 MCHC 34.1 RDW 15.5 Plt Count 134 D MPV 8.5 D Sodium 137 Potassium 3.2 L Chloride 104 Carbon Dioxide 22 Anion Gap 10 BUN 14.8 Creatinine 0.9 Est GFR (CKD-EPI)AfAm 121.67 Est GFR (CKD-EPI)NonAf 104.98 Random Glucose 138 H Calcium 8.2 L Total Bilirubin 0.7 AST 56 H ALT 58 Alkaline Phosphatase 94 Total Protein 7.9 Albumin 3.4 RPR Titer Nonreactive HIV 1&2 Antibody Screen HIV P24 Antigen 04/18/19 12:25 WBC RBC Hgb Hct MCV MCH MCHC RDW Plt Count MPV Sodium Potassium Chloride Carbon Dioxide Anion Gap BUN Creatinine Est GFR (CKD-EPI)AfAm Est GFR (CKD-EPI)NonAf Random Glucose Calcium Total Bilirubin AST ALT Alkaline Phosphatase Total Protein Albumin RPR Titer HIV 1&2 Antibody Screen Negative HIV P24 Antigen Negative Vital Signs - 24 hr 04/17/19 04/18/19 04/18/19 21:21 09:58 10:00 Temperature 97.9 F 98.1 F 98.1 F Pulse Rate 82 76 76 Respiratory 16 18 18 Rate Blood Pressure 108/64 139/74 139/74 04/18/19 04/18/19 13:52 18:24 Temperature 97.9 F 97.7 F Pulse Rate 75 70 Respiratory 18 17 Rate Blood Pressure 134/69 134/65 P : Clindamycin as per hospital instructions dressing daily
[2019-04-18] MEDS: diazePAM 5 MG TABLET PO PRN (18:52)
[2019-04-18] MEDS: THIAMINE HCL 100 MG TABLET (FP) PO SCH (22:11)
[2019-04-18] MEDS: IBUPROFEN 400 MG TABLET (FP) PO PRN (22:11)
[2019-04-18] MEDS: CLINDAMYCIN HCL 150 MG CAPSULE (FP) PO SCH (23:01)
[2019-04-19] MEDS: CLINDAMYCIN HCL 150 MG CAPSULE (FP) PO SCH ×4 (05:51→23:16)
[2019-04-19] MEDS ORDERED: METHADONE HCL 10 MG TABLET (FOR DETOX USE ONLY) ONE (09:48)
[2019-04-19] MEDS ORDERED: METHADONE HCL 5 MG TABLET (FOR DETOX USE ONLY) ONE (09:48)
[2019-04-19] MEDS ORDERED: METHADONE (DETOX) 20 MG, METHADONE (DETOX) 5 MG PO ONE (10:00)
[2019-04-19] MEDS ORDERED: METHADONE HCL 5 MG TABLET (FOR DETOX USE ONLY) PO ONE (10:00)
[2019-04-19] MEDS: PRENATAL VITAMINS W/ FOLIC ACID TABLET (FP) PO SCH (10:25)
[2019-04-19] MEDS: LOSARTAN POTASSIUM 25 MG TABLET PO SCH (10:25)
[2019-04-19] MEDS: HYDROCHLOROTHIAZIDE 12.5 MG CAPSULE (FP) PO SCH (10:25)
[2019-04-19] MEDS: NICOTINE 14 MG/24 HOURS TOPICAL PATCH TD SCH (10:26)
[2019-04-19] MEDS: SILVER SULFADIAZINE 1% TOP CREAM 50 GM JAR TP SCH ×2 (10:27→22:34)
[2019-04-19] MEDS: diazePAM 5 MG TABLET PO PRN ×3 (10:28→22:36)
--- NOTE | 2019-04-19 15:33 | PN ---
BHS COWS - Scale Resting Pulse: 0= [place] 80 or Below Sweatin= Chills/Flushing Restless Observation: 1= Difficult to Sit Still Pupil Size: 0= Normal to Room Light Bone or Joint Aches: 1= Mild Discomfort Runny Nose/ Eye Tearin= None GI Upset > 30mins: 0= None Tremor Observation of Outstretched Hands: 0= None Yawning Observation: 1= 1-2x During Session Anxiety or Irritability: 2=Irritable/Anxious Goose Flesh Skin: 3=Piloerection COWS Score: 9 BHS Progress Note (SOAP) Subjective: Sweating, Anxious, Body Aches. Patient reports that current withdrawal symptoms are gradually beginning to subside. Objective: PATIENT A & O X 3, OBSERVED AMBULATING ON DETOX UNIT UNASSISTED. IN NO ACUTE DISTRESS. 04/19/19 15:32 Vital Signs Temperature 98.2 F 04/19/19 06:11 Pulse Rate 68 04/19/19 06:11 Respiratory Rate 18 04/19/19 06:11 Blood Pressure 115/65 04/19/19 06:11 O2 Sat by Pulse Oximetry (%) Laboratory Tests 04/18/19 04/18/19 04/18/19 12:25 12:25 12:25 WBC 4.0 RBC 3.08 L Hgb 9.1 L Hct 26.8 L MCV 87.1 MCH 29.7 MCHC 34.1 RDW 15.5 Plt Count 134 D MPV 8.5 D Sodium 137 Potassium 3.2 L Chloride 104 Carbon Dioxide 22 Anion Gap 10 BUN 14.8 Creatinine 0.9 Est GFR (CKD-EPI)AfAm 121.67 Est GFR (CKD-EPI)NonAf 104.98 Random Glucose 138 H Calcium 8.2 L Total Bilirubin 0.7 AST 56 H ALT 58 Alkaline Phosphatase 94 Total Protein 7.9 Albumin 3.4 RPR Titer Nonreactive HIV 1&2 Antibody Screen HIV P24 Antigen 04/18/19 12:25 WBC RBC Hgb Hct MCV MCH MCHC RDW Plt Count MPV Sodium Potassium Chloride Carbon Dioxide Anion Gap BUN Creatinine Est GFR (CKD-EPI)AfAm Est GFR (CKD-EPI)NonAf Random Glucose Calcium Total Bilirubin AST ALT Alkaline Phosphatase Total Protein Albumin RPR Titer HIV 1&2 Antibody Screen Negative HIV P24 Antigen Negative LABS NOTED. PATIENT HAS BEEN ANEMIC AND HAS HAD ELEVATED AST LEVELS ON PREVIOUS ADMISSIONS. 04/19/19 15:35 Assessment: 04/19/19 15:35 WITHDRAWAL SYMPTOMS. HYPOKALEMIA. ELEVATED AST LEVEL. 04/19/19 15:37 Plan: CONTINUE DETOX. INCREASE DAILY ORAL WATER INTAKE. K-DUR, 20 MEQ ORALLY BID FOR LOW K LEVEL NOTED ON DETOX ADMISSION LABORATORY ASSESSMENT. WILL RE-CHECK K LEVEL ON 04/21/2019.
[2019-04-19] MEDS: POTASSIUM CHLORIDE TABS 20 MEQ TABLET.ER (FP) PO SCH (17:09)
[2019-04-19] MEDS: THIAMINE HCL 100 MG TABLET (FP) PO SCH (22:34)
[2019-04-19] MEDS: METHOCARBAMOL 500 MG TABLET PO PRN (22:36)
[2019-04-20] MEDS: diazePAM 5 MG TABLET PO PRN ×2 (05:27→14:26)
[2019-04-20] MEDS: CLINDAMYCIN HCL 150 MG CAPSULE (FP) PO SCH ×4 (05:27→23:26)
[2019-04-20] MEDS: NICOTINE 14 MG/24 HOURS TOPICAL PATCH TD SCH (09:09)
[2019-04-20] MEDS: POTASSIUM CHLORIDE TABS 20 MEQ TABLET.ER (FP) PO SCH ×2 (09:09→17:10)
[2019-04-20] MEDS: HYDROCHLOROTHIAZIDE 12.5 MG CAPSULE (FP) PO SCH (09:09)
[2019-04-20] MEDS: LOSARTAN POTASSIUM 25 MG TABLET PO SCH (09:09)
[2019-04-20] MEDS: PRENATAL VITAMINS W/ FOLIC ACID TABLET (FP) PO SCH (09:09)
[2019-04-20] MEDS: SILVER SULFADIAZINE 1% TOP CREAM 50 GM JAR TP SCH ×2 (09:12→22:49)
[2019-04-20] MEDS ORDERED: METHADONE HCL 10 MG TABLET (FOR DETOX USE ONLY) PO ONE ×2 (10:00)
[2019-04-20] MEDS ORDERED: hydrOXYzine PAMOATE 25 MG CAPSULE (FP) PO PRN (10:49)
--- NOTE | 2019-04-20 14:19 | PN ---
BHS COWS - Scale Resting Pulse: 1= [place] 81-100 Sweatin= Chills/Flushing Restless Observation: 0= Sits Still Pupil Size: 0= Normal to Room Light Bone or Joint Aches: 1= Mild Discomfort Runny Nose/ Eye Tearin= Runny Nose/Eyes GI Upset > 30mins: 2= Nausea/Diarrhea Tremor Observation of Outstretched Hands: 2= Slight Tremor Visible Yawning Observation: 0= None Anxiety or Irritability: 1=Feels Anxious/Irritable Goose Flesh Skin: 0=Smooth Skin COWS Score: 10 BHS Progress Note (SOAP) Subjective: Body aches, interrupted sleep Objective: 04/20/19 14:15 Last Vital Signs Temp Pulse Resp BP Pulse Ox 98.2 F 91 H 18 129/73 04/20/19 09:56 04/20/19 09:56 04/20/19 09:56 04/20/19 09:56 Laboratory Tests 04/18/19 04/18/19 04/18/19 12:25 12:25 12:25 WBC 4.0 RBC 3.08 L Hgb 9.1 L Hct 26.8 L MCV 87.1 MCH 29.7 MCHC 34.1 RDW 15.5 Plt Count 134 D MPV 8.5 D Sodium 137 Potassium 3.2 L Chloride 104 Carbon Dioxide 22 Anion Gap 10 BUN 14.8 Creatinine 0.9 Est GFR (CKD-EPI)AfAm 121.67 Est GFR (CKD-EPI)NonAf 104.98 Random Glucose 138 H Calcium 8.2 L Total Bilirubin 0.7 AST 56 H ALT 58 Alkaline Phosphatase 94 Total Protein 7.9 Albumin 3.4 RPR Titer Nonreactive HIV 1&2 Antibody Screen HIV P24 Antigen 04/18/19 12:25 WBC RBC Hgb Hct MCV MCH MCHC RDW Plt Count MPV Sodium Potassium Chloride Carbon Dioxide Anion Gap BUN Creatinine Est GFR (CKD-EPI)AfAm Est GFR (CKD-EPI)NonAf Random Glucose Calcium Total Bilirubin AST ALT Alkaline Phosphatase Total Protein Albumin RPR Titer HIV 1&2 Antibody Screen Negative HIV P24 Antigen Negative Labs reviewed: anemia, thrombocytopenia, hypokalemia, hypocalcemia, hyperglycemia, transaminitis noted Assessment: 04/20/19 14:19 Withdrawal sxs Noted with anemia, thrombocytopenia, hypokalemia, hypocalcemia, hyperglycemia, transaminitis noted Plan: Continue detox Encouraged PO water intake Anemia: most likely due to illicit drug use, continue vitamin, send iron studies, follow up with PCP for management Thrombocytopenia: most likely due to illicit drug use/HCV, encourage abstinence , follow up with PCP for monitoring Hypokalemia: replenished, repeat serum K level Hypocalcemia: start calcium carbonate 650mg PO bid until patient discharged from detox Hyperglycemia: denies DM, repeat fasting glucose, check A1c Transaminitis, mild: due to illicit drug use/HCV, follow up with PCP for monitoring
[2019-04-20] MEDS: METHOCARBAMOL 500 MG TABLET PO PRN (14:26)
[2019-04-20] MEDS: IBUPROFEN 400 MG TABLET (FP) PO PRN (17:12)
[2019-04-20] MEDS: CALCIUM CARBONATE 650 MG TABLET PO SCH (22:49)
[2019-04-20] MEDS: THIAMINE HCL 100 MG TABLET (FP) PO SCH (22:49)
[2019-04-21] MEDS: METHOCARBAMOL 500 MG TABLET PO PRN (05:53)
[2019-04-21] MEDS: CLINDAMYCIN HCL 150 MG CAPSULE (FP) PO SCH ×2 (05:53→12:30)
[2019-04-21] MEDS: diazePAM 5 MG TABLET PO PRN ×2 (05:55→10:19)
[2019-04-21] MEDS ORDERED: METHADONE HCL 5 MG TABLET (FOR DETOX USE ONLY) PO ONE (06:00)
[2019-04-21] MEDS ORDERED: METHADONE HCL 10 MG TABLET (FOR DETOX USE ONLY) ONE (09:55)
[2019-04-21] MEDS ORDERED: METHADONE HCL 5 MG TABLET (FOR DETOX USE ONLY) ONE (09:55)
[2019-04-21] MEDS ORDERED: COLLOIDAL OATMEAL 1 BAR EACH TP ONE (10:00)
[2019-04-21] MEDS ORDERED: COLLOIDAL OATMEAL 1 BAR EACH TP SCH (10:00)
[2019-04-21] MEDS ORDERED: METHADONE (DETOX) 10 MG, METHADONE (DETOX) 5 MG PO ONE (10:00)
[2019-04-21] MEDS: PRENATAL VITAMINS W/ FOLIC ACID TABLET (FP) PO SCH (10:16)
[2019-04-21] MEDS: HYDROCHLOROTHIAZIDE 12.5 MG CAPSULE (FP) PO SCH (10:17)
[2019-04-21] MEDS: CALCIUM CARBONATE 650 MG TABLET PO SCH ×2 (10:17→22:47)
[2019-04-21] MEDS: NICOTINE 14 MG/24 HOURS TOPICAL PATCH TD SCH (10:17)
[2019-04-21] MEDS: LOSARTAN POTASSIUM 25 MG TABLET PO SCH (10:17)
[2019-04-21] MEDS: SILVER SULFADIAZINE 1% TOP CREAM 50 GM JAR TP SCH ×2 (10:18→22:29)
[2019-04-21] MEDS: IBUPROFEN 400 MG TABLET (FP) PO PRN ×2 (10:20→20:05)
--- NOTE | 2019-04-21 11:13 | PN ---
[facility] CIWA - CIWA Score Muscle Tremors: None [facility] COWS - Scale Resting Pulse: 1= [place] 81-100 Sweatin= No chills or Flushing Restless Observation: 0= Sits Still Pupil Size: 0= Normal to Room Light Bone or Joint Aches: 1= Mild Discomfort Runny Nose/ Eye Tearin= None GI Upset > 30mins: 0= None Tremor Observation of Outstretched Hands: 0= None Yawning Observation: 0= None Anxiety or Irritability: 0= None Goose Flesh Skin: 0=Smooth Skin COWS Score: 2 S Progress Note (SOAP) Subjective: Complains of pain around left medial ankle lesion Objective: 04/21/19 11:09 Laboratory Last Values WBC 4.0 K/mm3 (4.0-10.0) 04/18/19 12:25 RBC 3.08 M/mm3 (4.00-5.60) L 04/18/19 12:25 Hgb 9.1 GM/dL (11.7-16.9) L 04/18/19 12:25 Hct 26.8 % (35.4-49) L 04/18/19 12:25 MCV 87.1 fl (80-96) 04/18/19 12:25 MCH 29.7 pg (25.7-33.7) 04/18/19 12:25 MCHC 34.1 g/dl (32.0-35.9) 04/18/19 12:25 RDW 15.5 % (11.9-15.9) 04/18/19 12:25 Plt Count 134 K/MM3 (134-434) D 04/18/19 12:25 MPV 8.5 fl (7.5-11.1) D 04/18/19 12:25 Sodium 137 mmol/L (136-145) 04/18/19 12:25 Potassium 3.2 mmol/L (3.5-5.1) L 04/18/19 12:25 Chloride 104 mmol/L (98-107) 04/18/19 12:25 Carbon Dioxide 22 mmol/L (21-32) 04/18/19 12:25 Anion Gap 10 MMOL/L (8-16) 04/18/19 12:25 BUN 14.8 mg/dL (7-18) 04/18/19 12:25 Creatinine 0.9 mg/dL (0.55-1.3) 04/18/19 12:25 Est GFR (CKD-EPI)AfAm 121.67 04/18/19 12:25 Est GFR (CKD-EPI)NonAf 104.98 04/18/19 12:25 Random Glucose 138 mg/dL (74-106) H 04/18/19 12:25 Calcium 8.2 mg/dL (8.5-10.1) L 04/18/19 12:25 Total Bilirubin 0.7 mg/dL (0.2-1) 04/18/19 12:25 AST 56 U/L (15-37) H 04/18/19 12:25 ALT 58 U/L (13-61) 04/18/19 12:25 Alkaline Phosphatase 94 U/L (45-117) 04/18/19 12:25 Total Protein 7.9 g/dl (6.4-8.2) 04/18/19 12:25 Albumin 3.4 g/dl (3.4-5.0) 04/18/19 12:25 RPR Titer Nonreactive (NONREACTIVE) 04/18/19 12:25 HIV 1&2 Antibody Screen Negative 04/18/19 12:25 HIV P24 Antigen Negative 04/18/19 12:25 Vital Signs Temperature 97.7 F 04/21/19 09:34 Pulse Rate 94 H 04/21/19 09:34 Respiratory Rate 18 04/21/19 09:34 Blood Pressure 108/67 04/21/19 09:34 O2 Sat by Pulse Oximetry (%) Gnl: WDWN, in minimal distress due to ankle pain Mental status: awake, alert, cooperative, follows complex commands Motor: ambulates in hallway, no abnormality Skin: left medial ankle wound: 4cm x 2 cm, dry with local swelling and redness 04/21/19 11:12 Assessment: 04/21/19 11:12 1. Opioid withdrawal 2. Nicotine dependence 3. Wound left medial ankle 4. Labs significant for: anemia, mild elevation in LFT, hypokalemia, hypocalcemia, thrombocytopenia 5. Hx of valve replacement/ hx of endocarditis 04/21/19 11:15 04/21/19 11:17 Plan: 1. continue opioid withdrawal protocol 2. repeat labs pending: K+ drawn this am 3. repeat CBC and CMP 4. continue calcium supplement 5. continue Fe supplement 6. Wound treatment/dressing ordered 7. continue Clindamycin
--- NOTE | 2019-04-21 13:43 | PN ---
S Progress Note Note: pt microbiology wound culture result show he is growing three different microbos and is resistant to cleocin. will start pt on levoquin 500mg x 7 days.
[2019-04-21] MEDS: THIAMINE HCL 100 MG TABLET (FP) PO SCH (22:47)
[2019-04-22 09:19] VITALS: BP 137/69; PULSE 88; TEMP 97.3
[2019-04-22] MEDS: PRENATAL VITAMINS W/ FOLIC ACID TABLET (FP) PO SCH (09:40)
[2019-04-22] MEDS: LOSARTAN POTASSIUM 25 MG TABLET PO SCH (09:40)
[2019-04-22] MEDS: CALCIUM CARBONATE 650 MG TABLET PO SCH (09:40)
[2019-04-22] MEDS: HYDROCHLOROTHIAZIDE 12.5 MG CAPSULE (FP) PO SCH (09:40)
[2019-04-22] MEDS: NICOTINE 14 MG/24 HOURS TOPICAL PATCH TD SCH (09:42)
[2019-04-22] MEDS: SILVER SULFADIAZINE 1% TOP CREAM 50 GM JAR TP SCH (09:42)
[2019-04-22] MEDS ORDERED: METHADONE HCL 10 MG TABLET (FOR DETOX USE ONLY) PO ONE (10:00)
[2019-04-22 10:56] LABS: ALBUMIN 3.1 g/dl (3.4-5.0); BILIRUBIN,TOTAL 0.6 mg/dL (0.2-1); BLOOD UREA NITROGEN 12.5 mg/dL (7-18); CALCIUM 8.8 mg/dL (8.5-10.1); POTASSIUM 3.9 mmol/L (3.5-5.1); TOT PROT 7.5 g/dl (6.4-8.2)
[2019-04-22 10:59] LABS: BASO % 0.3 % (0-2.0); EOS % 2.9 % (0-4.5); HEMATOCRIT 30.8 % (35.4-49); HEMOGLOBIN 10.4 GM/dL (11.7-16.9); LYMPH % 42.1 % (8-40); MCH 30.2 pg (25.7-33.7); MCHC 33.7 g/dl (32.0-35.9); MEAN CELL VOLUME 89.8 fl (80-96); MEAN PLT VOLUME 8.5 fl (7.5-11.1); NEUT % 41.7 % (42.8-82.8); PLATELET COUNT 129 K/MM3 (134-434); RBC 3.43 M/mm3 (4.00-5.60); RDW 16.6 % (11.9-15.9)
--- NOTE | 2019-04-22 12:01 | DS ---
[facility] Detox Discharge Summary Admission Date: 04/18/19 Discharge Date: 04/22/19 - History Present History: Opioid Dependence - Physical Exam Results Vital Signs: Vital Signs Temperature 97.3 F L 04/22/19 09:18 Pulse Rate 88 04/22/19 09:18 Respiratory Rate 18 04/22/19 09:18 Blood Pressure 137/69 04/22/19 09:18 O2 Sat by Pulse Oximetry (%) Pertinent Admission Physical Exam Findings: Vital Signs Temperature 97.3 F L 04/22/19 09:18 Pulse Rate 88 04/22/19 09:18 Respiratory Rate 18 04/22/19 09:18 Blood Pressure 137/69 04/22/19 09:18 O2 Sat by Pulse Oximetry (%) Laboratory Tests 04/18/19 04/18/19 04/18/19 12:25 12:25 12:25 WBC 4.0 RBC 3.08 L Hgb 9.1 L Hct 26.8 L MCV 87.1 MCH 29.7 MCHC 34.1 RDW 15.5 Plt Count 134 D MPV 8.5 D Absolute Neuts (auto) Neutrophils % Lymphocytes % Monocytes % Eosinophils % Basophils % Nucleated RBC % Sodium 137 Potassium 3.2 L Chloride 104 Carbon Dioxide 22 Anion Gap 10 BUN 14.8 Creatinine 0.9 Est GFR (CKD-EPI)AfAm 121.67 Est GFR (CKD-EPI)NonAf 104.98 Random Glucose 138 H Calcium 8.2 L Total Bilirubin 0.7 AST 56 H ALT 58 Alkaline Phosphatase 94 Total Protein 7.9 Albumin 3.4 RPR Titer Nonreactive HIV 1&2 Antibody Screen HIV P24 Antigen 04/18/19 04/21/19 04/22/19 12:25 10:15 07:45 WBC 3.0 L RBC 3.43 L Hgb 10.4 L Hct 30.8 L MCV 89.8 MCH 30.2 MCHC 33.7 RDW 16.6 H Plt Count 129 L MPV 8.5 Absolute Neuts (auto) 1.2 L Neutrophils % 41.7 L Lymphocytes % 42.1 H Monocytes % 13.0 H Eosinophils % 2.9 Basophils % 0.3 Nucleated RBC % 0 Sodium Potassium 3.9 Chloride Carbon Dioxide Anion Gap BUN Creatinine Est GFR (CKD-EPI)AfAm Est GFR (CKD-EPI)NonAf Random Glucose Calcium Total Bilirubin AST ALT Alkaline Phosphatase Total Protein Albumin RPR Titer HIV 1&2 Antibody Screen Negative HIV P24 Antigen Negative 04/22/19 07:45 WBC RBC Hgb Hct MCV MCH MCHC RDW Plt Count MPV Absolute Neuts (auto) Neutrophils % Lymphocytes % Monocytes % Eosinophils % Basophils % Nucleated RBC % Sodium 141 Potassium 3.9 Chloride 108 H Carbon Dioxide 26 Anion Gap 7 L BUN 12.5 Creatinine 1.0 Est GFR (CKD-EPI)AfAm 107.12 Est GFR (CKD-EPI)NonAf 92.42 Random Glucose 151 H Calcium 8.8 Total Bilirubin 0.6 AST 55 H ALT 57 Alkaline Phosphatase 93 Total Protein 7.5 Albumin 3.1 L RPR Titer HIV 1&2 Antibody Screen HIV P24 Antigen pt arrived with a mean cellulites to left lower leg; today cellulites ulcer looks better improved and healing with current oral and topical abx ordered. rx sent to his pharmacy for continued care. pt is made aware. - Treatment Hospital Course: Detox Protocol Followed, Detoxed Safely, Responded well, Discharged Condition Good, Rehab Referral Accepted - Medication Discharge Medications: Ambulatory Orders Losartan Potassium [Cozaar] 25 mg PO DAILY 07/02/18 Hydrochlorothiazide [Hctz -] 12.5 mg PO DAILY #14 cap 12/23/18 Silver Sulfadiazine 1% Top Cr [Silvadene -] 1 applic TP BID #1 jar 04/22/19 levoFLOXacin [Levaquin -] 500 mg PO DAILY@0600 #5 tablet 04/22/19 - Diagnosis (1) Opioid dependence Status: Chronic (2) Cocaine dependence Status: Chronic (3) Hepatitis C Status: Chronic Qualifiers: Viral hepatitis chronicity: chronic Hepatic coma status: without hepatic coma Qualified Code(s): B18.2 - Chronic viral hepatitis C (4) Hypertension Status: Chronic Qualifiers: Hypertension type: essential hypertension Qualified Code(s): I10 - Essential (primary) hypertension (5) IVDU (intravenous drug user) Status: Chronic (6) Nicotine dependence, uncomplicated Status: Chronic Qualifiers: Nicotine product type: cigarettes Qualified Code(s): F17.210 - Nicotine dependence, cigarettes, uncomplicated (7) Opioid dependence with withdrawal Status: Chronic (8) Substance induced mood disorder Status: Suspected (9) Ulcer of ankle Status: Acute Qualifiers: Laterality: left Non-pressure ulcer stage: unspecified non-pressure ulcer stage Qualified Code(s): L97.329 - Non-pressure chronic ulcer of left ankle with unspecified severity (10) Blister of toe of left foot Status: Acute Qualifiers: Encounter type: initial encounter Qualified Code(s): S90.425A - Blister ( nonthermal), left lesser toe(s), initial encounter - AMA Did Patient Leave Against Medical Advice: No
[2019-04-23] MEDS ORDERED: METHADONE HCL 5 MG TABLET (FOR DETOX USE ONLY) PO ONE (06:00)
== END 2019-04-22 10:27 | disposition home or self-care (01) | DRG 773 ==
LOC: YASAS 18:40 → Y6N 04-18 05:32
PROVIDERS: ADMIT Allergy & Immunology; ATTEND Allergy & Immunology
PROC: HZ2ZZZZ Detoxification Services for Substance Abuse Treatment (ICD-10-PCS; principal; 2019-04-18)
DX: F11.23 Opioid dependence with withdrawal (principal); F14.20 Cocaine dependence, uncomplicated; F17.210 Nicotine dependence, cigarettes, uncomplicated; F19.24 Other psychoactive substance dependence with psychoactive substance-induced mood disorder; I10 Essential (primary) hypertension; Y93.9 Activity, unspecified; Y92.9 Unspecified place or not applicable; D64.9 Anemia, unspecified; R94.5 Abnormal results of liver function studies; E87.6 Hypokalemia; D69.6 Thrombocytopenia, unspecified; R74.0 Nonspecific elevation of levels of transaminase and lactic acid dehydrogenase [LDH]; L97.329 Non-pressure chronic ulcer of left ankle with unspecified severity; B18.2 Chronic viral hepatitis C; S90.425A Blister (nonthermal), left lesser toe(s), initial encounter; X58.XXXA Exposure to other specified factors, initial encounter; Z95.2 Presence of prosthetic heart valve; Z86.79 Personal history of other diseases of the circulatory system; Z91.013 Allergy to seafood
CPT/HCPCS: 36415; 80053; 83605; 84132; 85025; 85027; 86593; 87070; 87077; 87186; 87205; 87389; 93005; 93010; 96365; 99282-25